=== PATIENT | female | born 1950 | race Caucasian/White ===

== ENCOUNTER 2016-07-08 20:46 | Observation (INO) ==
[2016-07-08 21:45] LABS: Albumin 3.6 g/dL (3.5-5.0); Bilirubin,Total 0.8 mg/dL (0.2-1.2); Calcium 10.2 mg/dL (8.6-10.8); Globulin 3.6 g/dL (2.4-3.5); Potassium 4.4 mEq/L (3.5-4.5); Total Protein 7.2 g/dL (6.0-8.3)
--- NOTE | 2016-07-08 22:03 | Emergency Department Note ---
Disposition Clinical Impression: Syncope Qualifiers: Syncope type: unspecified Qualified Code(s): R55 - Syncope and collapse Disposition: Admitted As Inpatient Condition: Fair Referrals: Suzanna Cody MD [Primary Care Provider] - Forms: ED Satisfaction Letter Altered Mental Status HPI - General Chief Complaint: ED Head Injury Stated Complaint: ams/fall Time Seen by Provider: 07/08/16 20:56 Source: EMS Nursing Notes Reviewed: Yes Vital Signs Reviewed: Yes - History of Present Illness HPI Narrative: Patient presents status post fall. Per family report patient reports that she was walking and blacked out and is not sure what happened. Patient does not have a history of falls does not use have a history of similar symptoms. Patient denies chest pain or shortness of breath. Patient denies dizziness. Per son report, patient has had word finding and slurring of words over the past month. He discussed this with the [facility] who was going to send the patient for an MRI for evaluation of CVA. He states that the patient's told him that she had a stroke. He relates that patient has had multiple strokes and she normally knows when she has had one. There is no report of eating and drinking difficulty with the symptoms. No report of weakness. - Related Data Home Medications Medication Instructions Recorded Confirmed Krill Oil 1,000 mg PO DAILY 02/10/15 03/23/15 Lisinopril [Zestril] 20 mg PO DAILY 02/10/15 03/23/15 Potassium Chloride 1 tab PO TID 02/10/15 03/23/15 Atorvastatin [Lipitor] 40 mg PO HS 03/10/15 03/23/15 Calcium Carbonate/Vitamin D3 1 each PO DAILY 03/10/15 03/23/15 [Calcium 600 + D Tablet] Docusate [Colace] 100 mg PO BID 03/10/15 03/23/15 Ondansetron HCl [Zofran] 4 - 8 mg PO TID PRN 03/10/15 03/23/15 Pantoprazole Sodium [Protonix] 20 mg PO DAILY 03/10/15 03/23/15 Sennosides/Docusate Sodium [Senna 1 each PO DAILY 03/10/15 03/23/15 Plus] Sucralfate [Carafate] 1 gm PO TID 03/10/15 03/23/15 Verapamil ER (24 HR) [Calan SR] 120 mg PO DAILY 03/10/15 03/23/15 Furosemide [Lasix] 20 mg PO DAILY 03/11/15 03/23/15 Tizanidine [Zanaflex] 2 mg PO Q8HR PRN 03/11/15 03/23/15 Previous Rx's Medication Instructions Recorded Amlodipine [Norvasc] 10 mg PO DAILY #0 tablet 01/22/15 Folic Acid 1 mg PO DAILY #0 tablet 01/22/15 Isosorbide DInitrate [Isordil] 30 mg PO TID #0 tablet 01/22/15 LevETIRAcetam [Keppra] 750 mg PO BID #0 tablet 01/22/15 Multivit/Ca/Min/Fe/FA [Thera M 1 tab PO DAILY #0 tablet 01/22/15 Plus] Paroxetine [Paxil] 20 mg PO DAILY #0 tablet 01/22/15 Rivaroxaban [Xarelto] 20 mg PO DAILY #0 tablet 01/22/15 Lidocaine Patch [Lidoderm 5% patch] 1 each TP DAILY #7 adh..patch 03/11/15 Ciprofloxacin HCl [Cipro] 500 mg PO BID #10 tablet 03/25/15 Hydrocodone/Acetaminophen [[place] 1 tab PO Q6H #28 tablet 03/25/15 7.5-325 Tablet] TraMADol [Ultram] 50 mg PO Q6HR PRN #28 tablet 03/25/15 TraZODone 50 mg PO HS #7 tablet 03/25/15 Allergies Allergy/AdvReac Type Severity Reaction Status Date / Time aspirin Allergy Anaphylaxis Verified 07/08/16 20:53 Penicillins Allergy Anaphylaxis Verified 07/08/16 20:53 All systems ED: reviewed and negative except as stated. 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 - Social History Smoking Status: Former smoker Smokeless Tobacco Status: No Alcohol use: Reports: none Drug use: Reports: none Physical Exam - General Limitations: no limitations General appearance: alert, in no apparent distress - Head Head exam: atraumatic, normocephalic, normal inspection - Eye Eye exam: Present: normal appearance, PERRL, EOMI - ENT ENT exam: normal exam, normal oropharynx, mucous membranes moist - Neck Neck exam: Present: normal inspection, full ROM, trachea midline - Chest Chest inspection: Present: normal inspection, symmetric chest wall rise - Respiratory Respiratory exam: Present: normal lung sounds bilaterally - Cardiovascular Cardiovascular exam: Present: regular rate, normal rhythm, normal heart sounds - Abdominal Exam Abdominal exam: Present: soft, Non-Tender. Absent: tenderness, distention, guarding, rebound, rigidity - Extremities Exam Extremities exam: Present: normal inspection, full ROM, tenderness (Tenderness to right lateral hip). Absent: pedal edema - Back Exam Back exam: Present: normal inspection, full ROM. Absent: tenderness - Neurological Exam Neurological exam: Present: alert - Psychiatric Psychiatric exam: Present: normal affect, normal mood - Skin Skin exam: Present: warm, dry, intact, normal color Course Vital Signs Temperature 98.0 F 07/08/16 20:48 Pulse Rate 78 07/08/16 20:48 Respiratory Rate 16 07/08/16 20:48 Blood Pressure 113/80 07/08/16 20:48 O2 Sat by Pulse Oximetry 94 L 07/08/16 20:48 Temperature 98.0 F 07/08/16 20:48 Pulse Rate 75 07/09/16 00:44 Respiratory Rate 14 07/09/16 00:44 Blood Pressure 142/81 07/09/16 00:44 O2 Sat by Pulse Oximetry 93 L 07/09/16 00:44 Oxygen Delivery Oxygen Delivery Room Air Altered Mental Status - Differential Diagnosis Likely: altered mental status, dementia, hypoglycemia, hyponatremia, subarachnoid hemorrhage - Lab Data Lab results reviewed: Yes I reviewed the patient's lab results. Result diagrams: 07/08/16 00:25 07/08/16 21:24 Lab Results 07/08/16 07/08/16 07/08/16 Range/Units 00:25 21:24 21:24 WBC 7.5 (4.3-11.1) K/mcL RBC 4.49 (3.82-4.97) M/mcL Hgb 14.9 (11.5-15.4) g/dL Hct 44.8 (35.3-44.9) % MCV 99.8 (83.0-100.0) fL MCH 33.2 (28.0-33.3) pg MCHC 33.3 (31.6-35.5) g/dL RDW 12.3 (11.5-14.5) % Plt Count 177 (140-400) K/mcL MPV 9.5 (9.4-12.4) fL Immature Gran % 0.5 (0-4) % Seg Neutrophils % 66.6 % Lymphocytes % 24.6 % Monocytes % 6.2 % Eosinophils % 1.7 % Basophils % 0.4 % Neutrophils # 5.0 (1.6-8.9) K/mcL Lymphocytes # 1.8 (0.6-4.6) K/mcL Monocytes # 0.5 (0.0-1.3) K/mcL Eosinophils # 0.1 (0.0-0.6) K/mcL Basophils # 0.0 (0.0-0.2) K/mcL Sodium 141 (136-145) mEq/L Potassium 4.4 (3.5-4.5) mEq/L Chloride 105 (98-109) mEq/L Carbon Dioxide 26 (19-29) mEq/L BUN 14 (7-20) mg/dL Creatinine 1.18 H (0.57-1.11) mg/dL Est GFR ( Amer) 55 L (> 60) Est GFR (Non-Af Amer) 46 L (> 60) BUN/Creatinine Ratio 12 (6-26) Glucose 122 H (70-99) mg/dL Calculated Osmolality 294 (280-300) Lactic Acid 1.3 (0.5-2.2) mmol/L Calcium 10.2 (8.6-10.8) mg/dL Total Bilirubin 0.8 (0.2-1.2) mg/dL AST 19 (5-34) Units/L ALT 14 (0-55) Units/L Alkaline Phosphatase 78 (38-126) Units/L Troponin I (0-0.03) ng/mL Serum Total Protein 7.2 (6.0-8.3) g/dL Albumin 3.6 (3.5-5.0) g/dL Globulin 3.6 H (2.4-3.5) g/dL Albumin/Globulin Ratio 1.0 L (1.1-2.2) Urine Color (Yellow) Urine Clarity (Clear) Urine pH (5.0-8.0) pH Units Ur Specific [place] (1.010-1.025) Urine Protein (Neg-Trace) mg/dL Urine Glucose (UA) (Normal) mg/dL Urine Ketones (Negative) mg/dL Urine Blood (Negative) Urine Nitrite (Negative) Urine Bilirubin (Negative) Urine Urobilinogen (Normal) mg/dL Ur Leukocyte Esterase (Negative) Urine Microscopic RBC (0-3) per hpf Urine Microscopic WBC (0-3) per hpf Ur Squamous Epith Cells (None-Few) per lpf Urine Bacteria (None-Few) per hpf Hyaline Casts (None-Few) per lpf Ur Culture Indicated? (NO) 07/08/16 07/08/16 Range/Units 21:24 22:10 WBC (4.3-11.1) K/mcL RBC (3.82-4.97) M/mcL Hgb (11.5-15.4) g/dL Hct (35.3-44.9) % MCV (83.0-100.0) fL MCH (28.0-33.3) pg MCHC (31.6-35.5) g/dL RDW (11.5-14.5) % Plt Count (140-400) K/mcL MPV (9.4-12.4) fL Immature Gran % (0-4) % Seg Neutrophils % % Lymphocytes % % Monocytes % % Eosinophils % % Basophils % % Neutrophils # (1.6-8.9) K/mcL Lymphocytes # (0.6-4.6) K/mcL Monocytes # (0.0-1.3) K/mcL Eosinophils # (0.0-0.6) K/mcL Basophils # (0.0-0.2) K/mcL Sodium (136-145) mEq/L Potassium (3.5-4.5) mEq/L Chloride (98-109) mEq/L Carbon Dioxide (19-29) mEq/L BUN (7-20) mg/dL Creatinine (0.57-1.11) mg/dL Est GFR ( Amer) (> 60) Est GFR (Non-Af Amer) (> 60) BUN/Creatinine Ratio (6-26) Glucose (70-99) mg/dL Calculated Osmolality (280-300) Lactic Acid (0.5-2.2) mmol/L Calcium (8.6-10.8) mg/dL Total Bilirubin (0.2-1.2) mg/dL AST (5-34) Units/L ALT (0-55) Units/L Alkaline Phosphatase (38-126) Units/L Troponin I 0.00 (0-0.03) ng/mL Serum Total Protein (6.0-8.3) g/dL Albumin (3.5-5.0) g/dL Globulin (2.4-3.5) g/dL Albumin/Globulin Ratio (1.1-2.2) Urine Color Yellow (Yellow) Urine Clarity Cloudy A (Clear) Urine pH 7.0 (5.0-8.0) pH Units Ur Specific [place] 1.012 (1.010-1.025) Urine Protein Negative (Neg-Trace) mg/dL Urine Glucose (UA) Normal (Normal) mg/dL Urine Ketones Negative (Negative) mg/dL Urine Blood Moderate H (Negative) Urine Nitrite Negative (Negative) Urine Bilirubin Negative (Negative) Urine Urobilinogen Normal (Normal) mg/dL Ur Leukocyte Esterase Moderate H (Negative) Urine Microscopic RBC 15-30 H (0-3) per hpf Urine Microscopic WBC 15-30 H (0-3) per hpf Ur Squamous Epith Cells Many H (None-Few) per lpf Urine Bacteria Many H (None-Few) per hpf Hyaline Casts None Seen (None-Few) per lpf Ur Culture Indicated? YES A (NO) - Radiology Data Radiology results reviewed: Yes I reviewed the patient's radiology results. Chest X-Ray 07/08/16 20:57 IMPRESSION: No acute cardiopulmonary abnormality. D/ / Jensen Segura MD / Jensen Segura MD Interpreting Provider: Jensen Segura MD Head CT 07/08/16 20:57 IMPRESSION: 1. No acute intracranial abnormality. 2. Unchanged encephalomalacia in the right frontal, bilateral parietal, and left upper lobes and the left cerebellar hemisphere. 3. Mild diffuse atrophy with severe chronic small vessel ischemic changes. D/ / Nghia Antonio MD / Nghia Antonio MD Interpreting Provider: Nghia Antonio MD - EKG Data EKG attestation: Yes I reviewed and interpreted this EKG. EKG results narrative: Unchanged from previous EKG performed in November 2015 EKG shows normal: sinus rhythm Rate: normal Rhythm: NSR TPA Checklist - LKW: 3-4.5 hrs Add. Contraindications Patient/family understanding: The patient/family members have been counseled and understood the risk, benefit , and alternatives of treatment.
[2016-07-08 22:18] LABS: Bilirubin,Urine Negative (Negative); Blood,Urine Moderate (Negative); Clarity,Urine Cloudy (Clear); Color,Urine Yellow (Yellow); Glucose,Urine (UA) Normal (Normal); Ketones,Urine Negative (Negative); Leukocyte Esterase,Urine Moderate (Negative); Nitrite,Urine Negative (Negative); Protein,Urine Negative (Neg-Trace); Specific Gravity,Urine 1.012 (1.010-1.025); Urobilinogen,Urine Normal (Normal)
[2016-07-08 22:19] LABS: Bacteria,Urine Many per hpf (None-Few); Hyaline Casts,Urine None Seen per lpf (None-Few); RBC,Urine 15-30 per hpf (0-3); Squamous Epithelial Cell,Urine Many per lpf (None-Few); WBC,Urine 15-30 per hpf (0-3)
[2016-07-09 00:40] LABS: Basophils % 0.4 %; Eosinophils # 0.1 K/mcL (0.0-0.6); Eosinophils % 1.7 %; Hematocrit 44.8 % (35.3-44.9); Hemoglobin 14.9 g/dL (11.5-15.4); Immature Granulocytes % 0.5 % (0-4); Lymphocytes # 1.8 K/mcL (0.6-4.6); Lymphocytes % 24.6 %; Mean Corpuscular HGB Conc 33.3 g/dL (31.6-35.5); Mean Corpuscular Hemoglobin 33.2 pg (28.0-33.3); Mean Corpuscular Volume 99.8 fL (83.0-100.0); Mean Platelet Volume 9.5 fL (9.4-12.4); Monocytes # 0.5 K/mcL (0.0-1.3); Monocytes % 6.2 %; Platelet Count 177 K/mcL (140-400); Red Blood Count 4.49 M/mcL (3.82-4.97); Red Cell Distribution Width 12.3 % (11.5-14.5); Segmented Neutrophils % 66.6 %
[2016-07-09] MEDS ORDERED: Levofloxacin 750 MG/150 ML 750 MG/150 ML BAG IVPB ONE (00:44)
[2016-07-09 01:26] LABS: INR 3.7; Prothrombin Time 41.4 Seconds (9.4-12.1)
[2016-07-09 01:32] LABS: Activated Partial Thrombo Time 51.6 Seconds (26.0-36.0)
[2016-07-09] MEDS ORDERED: Naloxone 0.4 MG/ML INJ IVP PRN (05:59)
--- NOTE | 2016-07-09 06:15 | Internal Med History&Physical ---
Date of Encounter: 07/09/16 Time of Encounter: 03:00 Assessment and Plan (1) Syncope Current visit: Yes Status: Acute Vasovagal versus cardiogenic versus neurological. Will check for Orthostatics; will obtain echocardiogram, carotid Doppler. Neurology consultation; PT/OT evaluation. Qualifiers: Syncope type: unspecified Qualified Code(s): R55 - Syncope and collapse (2) CVA, old, dysphagia Current visit: Yes Status: Chronic CT scan shows encephalomalacia. Pt failed bed side swallow eval. Will keep her NPO. Neurology consultation, speech therapy, physical therapy and occupational therapy consultation. (3) Abnormal urinalysis Current visit: Yes Status: Acute Empiric treat her for UTI with ceftriaxone. Cultures pending. (4) Depression Current visit: Yes Status: Chronic Continue her home medications Qualifiers: Depression Type: unspecified Qualified Code(s): F32.9 - Major depressive disorder, single episode, unspecified (5) Hypertension Current visit: Yes Status: Chronic Continue home medications Qualifiers: Hypertension type: essential hypertension Qualified Code(s): I10 - Essential (primary) hypertension (6) Chronic anticoagulation Current visit: Yes Status: Chronic Pt is on xarelto - will continue Internal Medicine - H&P: HPI Chief complaint: syncope Admitted From: Emergency Dept Plans for Post Hospital Care: Transfer Nutrition Assistant Care History of present illness: Ms. Zepeda is a 66 year old female with Past medical history significant for CVA (multiple strokes in the past per pt/family), GERD, hyperlipidemia, hypertension, CAD, RA, seizures, depression, s/p cholecystectomy. She is not able to give clinical details, due to some confusion. Apparently patient had a fall at about 7:50 PM while she was walking to the hallway from the snf and fell backwards, but no injuries reported at that time. Patient does not recollect the events. She reports feeling dizzy prior to the episode. She denies chest pain, palpitations, shortness of breath, abdominal pain, urinary or bowel problems. Per the ER documentation - Per son report, patient has had word finding and slurring of words over the past month. He discussed this with the snf who was going to send the patient for an MRI for evaluation of CVA. He states that the patient's told him that she had a stroke. He relates that patient has had multiple strokes and she normally knows when she has had one. Patient was evaluated in the emergency department for syncope and admitted to hospital service for further workup and management. CT head reported unchanged and encephalomalacia in the right frontal, bilateral parietal and left cerebellar hemisphere. Past Med Surg Social Fam HX - Past Medical History Medical history: CVA, GERD, hyperlipidemia, hypertension, myocardial infarction , RA, seizures, TIA Psychiatric history: depression - Past Surgical History Surgical History: cholecystectomy, PAXTON/BSO - Social History Smoking Status: Former smoker Smokeless Tobacco Status: No Alcohol use: none Drug use: none - Family History Mother Hx Family Cardiac Disorders: Yes (mother - CAD Brother - CAD) Father Hx Family Cancer: Yes (brain) Internal Medicine - H&P: Meds Folic Acid 1 mg PO DAILY #0 tablet 01/22/15 [Rx] Isosorbide DInitrate [Isordil] 30 mg PO TID #0 tablet 01/22/15 [Rx] LevETIRAcetam [Keppra] 750 mg PO BID #0 tablet 01/22/15 [Rx] Multivit/Ca/Min/Fe/FA [Thera M Plus] 1 tab PO DAILY #0 tablet 01/22/15 [Rx] Rivaroxaban [Xarelto] 20 mg PO DAILY #0 tablet 01/22/15 [Rx] Lisinopril [Zestril] 30 mg PO DAILY 02/10/15 [History] Potassium Chloride 1 tab PO TID 02/10/15 [History] Atorvastatin [Lipitor] 40 mg PO HS 03/10/15 [History] Calcium Carbonate/Vitamin D3 [Calcium 600 + D Tablet] 1 each PO DAILY 03/10/15 [ History] Docusate [Colace] 100 mg PO BID 03/10/15 [History] Pantoprazole Sodium [Protonix] 20 mg PO DAILY 03/10/15 [History] Sennosides/Docusate Sodium [Senna Plus] 1 each PO DAILY 03/10/15 [History] Verapamil ER (24 HR) [Calan SR] 120 mg PO DAILY 03/10/15 [History] Furosemide [Lasix] 20 mg PO DAILY 03/11/15 [History] Lidocaine Patch [Lidoderm 5% patch] 1 each TP DAILY #7 adh..patch 03/11/15 [Rx] Tizanidine [Zanaflex] 2 mg PO Q8HR PRN 03/11/15 [History] Hydrocodone/Acetaminophen [[place] 7.5-325 Tablet] 1 tab PO Q6H #28 tablet [Rx] TraMADol [Ultram] 50 mg PO Q6HR PRN #28 tablet 03/25/15 [Rx] TraZODone 50 mg PO HS #7 tablet 03/25/15 [Rx] ClonazePAM [Klonopin] 0.25 mg PO BID 07/09/16 [History] Erythromycin Base [Erythromycin] 250 mg PO TID 07/09/16 [History] Gabapentin [Neurontin] 100 mg PO TID 07/09/16 [History] Paroxetine [Paxil] 40 mg PO DAILY 07/09/16 [History] Allergies aspirin Allergy (Verified 07/08/16 20:53) Anaphylaxis Penicillins Allergy (Verified 07/08/16 20:53) Anaphylaxis All Systems PM: A 10-system review of systems was performed and is negative for pertinent findings except as documented above in the HPI. - Constitutional Vitals: Temp Pulse Resp BP Pulse Ox 97.6 F 81 18 150/86 92 L 07/09/16 01:25 07/09/16 01:25 07/09/16 01:25 07/09/16 01:25 07/09/16 01:25 Exam: General: Not in acute distress at the time of my evaluation HEENT: Oral mucosa is dry. Poor oral hygeine. No conjunctival palor or scleral icterus Neck: No obvious neck swellings Lungs: Clear to auscultation Cardiac: Regular rate and rhythm. No significant murmurs Abdomen: Soft, non tender. Bowel sounds present Neurological: Pt is alert, confused and not able to follow commands well. No gross cranial nerve abnormalities. Left upper and lower extremities - power 4+/ 5. Plantars - down going Psych: Not aggressive or agitated. confused Extremities: no significant leg edema Skin: No generalized rash. Has some excoriations on the left lateral aspect of the abdomen. Internal Med - H&P Results - Labs CBC & Chem 7: 07/08/16 00:25 07/08/16 21:24 - EKG Data -: EKG Interpreted by Myself EKG shows normal: sinus rhythm - EKG Data EKG comments: Q waves in leads 3 and aVF 07/09/16 06:16 - Impressions ITS Impressions Chest X-Ray 07/08/16 20:57 IMPRESSION: No acute cardiopulmonary abnormality. D/ / Jensen Segura MD / Jensen Segura MD Interpreting Provider: Jensen Segura MD Head CT 07/08/16 20:57 IMPRESSION: 1. No acute intracranial abnormality. 2. Unchanged encephalomalacia in the right frontal, bilateral parietal, and left upper lobes and the left cerebellar hemisphere. 3. Mild diffuse atrophy with severe chronic small vessel ischemic changes. D/ / Nghia Antonio MD / Nghia Antonio MD Interpreting Provider: Nghia Antonio MD Hip/Pelvis X-Ray 07/09/16 00:08 IMPRESSION: 1. No acute osseous abnormality of the pelvis or left or right hip. 2. Mild right and moderate left hip degenerative changes. D/ / Jensen Segura MD / Jensen Segura MD Interpreting Provider: Jensen Segura MD
[2016-07-09] MEDS: 0.9 % Sodium Chloride 1,000 ML IVC SCH ×2 (06:32→20:48)
[2016-07-09] MEDS ORDERED: Aztreonam 500 MG in D5% in Water 100 ML IVPB SCH (08:00)
[2016-07-09] MEDS: Verapamil ER (24 HR) 120 MG TABLET.ER PO SCH (09:24)
[2016-07-09] MEDS: Multivit/Ca/Min/Fe/FA 1 TAB TABLET PO SCH (09:25)
[2016-07-09] MEDS: clonazePAM 0.5 MG TABLET PO SCH ×2 (09:25→20:39)
[2016-07-09] MEDS: Calcium 600 + D PO SCH (09:25)
[2016-07-09] MEDS: Sennosides/Docusate Sodium TABLET PO SCH (09:25)
[2016-07-09] MEDS: Gabapentin 100 MG CAPSULE PO SCH ×3 (09:25→20:40)
[2016-07-09] MEDS: *HR* Rivaroxaban 10 MG TABLET PO SCH (09:25)
[2016-07-09] MEDS: Folic Acid 1 MG TABLET PO SCH (09:25)
--- NOTE | 2016-07-09 09:39 | Neurology - Consult Note ---
Date of Encounter: 07/09/16 Time of Encounter: 09:34 Assessment and Plan (1) Abnormal urinalysis Current Visit: Yes Status: Acute Likely the cause of the patient's delirium superimposing on her baseline vascular dementia. The patient has an extensive history of CVA and encephalomalacia. There are no acute findings that indicate acute CVA or neurogenic cause of her alteration of mentation from baseline. The patient's history and appearance of previous MRI suggest possible B[place] 's Disease. (2) CVA (cerebral vascular accident) Current Visit: No Status: Chronic On current anti-coagulation. Xarelto. Qualifiers: CVA mechanism: unspecified Qualified Code(s): I63.9 - Cerebral infarction, unspecified (3) CVA, old, dysphagia Current Visit: Yes Status: Chronic (4) Hypertension Current Visit: Yes Status: Chronic Qualifiers: Hypertension type: essential hypertension Qualified Code(s): I10 - Essential (primary) hypertension History of Present Illness Chief complaint: Fall, AMS HPI: Ms. Zepeda is a 66 year old female from [facility] where the patient was brought to the ED after the patient experienced an apparent syncopal episode. She is a very poor historian at this time due to possible alteration in mentation. The patient's son was told by nursing staff at facility that she "had a stroke", and it was confirmed with the ED attending that the patient has experienced multiple strokes in the past. It was also reported by the son that the patient has been experiencing more frequent confusion and weakness over the past month. The patient is currently anti-coagulated on xarelto. The patient was found to have possible UTI in ED. Head CT revealed encephalomalacia due to previous CVA. Patient noted to be afebrile, without leukocytosis, no hypotension or tachycardia. Patient denies any UTI symptoms. She denies any complaints at this time. Past Med Surg Social Fam HX - Past Medical History Attestation: Yes The following information was validated with the patient. Source: old records reviewed Medical history: CVA, GERD, hyperlipidemia, hypertension, myocardial infarction , RA, seizures, TIA Psychiatric history: depression, other (Paranoia) - Past Surgical History Surgical History: cholecystectomy, PAXTON/BSO - Social History Smoking Status: Former smoker Smokeless Tobacco Status: No Alcohol use: none Drug use: none Current living situation: ECF - Family History Mother Hx Family Cardiac Disorders: Yes (mother - CAD Brother - CAD) Father Hx Family Cancer: Yes (brain) Medications and Allergies Folic Acid 1 mg PO DAILY #0 tablet 01/22/15 [Rx] Isosorbide DInitrate [Isordil] 30 mg PO TID #0 tablet 01/22/15 [Rx] LevETIRAcetam [Keppra] 750 mg PO BID #0 tablet 01/22/15 [Rx] Multivit/Ca/Min/Fe/FA [Thera M Plus] 1 tab PO DAILY #0 tablet 01/22/15 [Rx] Rivaroxaban [Xarelto] 20 mg PO DAILY #0 tablet 01/22/15 [Rx] Lisinopril [Zestril] 30 mg PO DAILY 02/10/15 [History] Potassium Chloride 1 tab PO TID 02/10/15 [History] Atorvastatin [Lipitor] 40 mg PO HS 03/10/15 [History] Calcium Carbonate/Vitamin D3 [Calcium 600 + D Tablet] 1 each PO DAILY 03/10/15 [ History] Docusate [Colace] 100 mg PO BID 03/10/15 [History] Pantoprazole Sodium [Protonix] 20 mg PO DAILY 03/10/15 [History] Sennosides/Docusate Sodium [Senna Plus] 1 each PO DAILY 03/10/15 [History] Verapamil ER (24 HR) [Calan SR] 120 mg PO DAILY 03/10/15 [History] Furosemide [Lasix] 20 mg PO DAILY 03/11/15 [History] Lidocaine Patch [Lidoderm 5% patch] 1 each TP DAILY #7 adh..patch 03/11/15 [Rx] Tizanidine [Zanaflex] 2 mg PO Q8HR PRN 03/11/15 [History] Hydrocodone/Acetaminophen [[place] 7.5-325 Tablet] 1 tab PO Q6H #28 tablet [Rx] TraMADol [Ultram] 50 mg PO Q6HR PRN #28 tablet 03/25/15 [Rx] TraZODone 50 mg PO HS #7 tablet 03/25/15 [Rx] ClonazePAM [Klonopin] 0.25 mg PO BID 07/09/16 [History] Erythromycin Base [Erythromycin] 250 mg PO TID 07/09/16 [History] Gabapentin [Neurontin] 100 mg PO TID 07/09/16 [History] Paroxetine [Paxil] 40 mg PO DAILY 07/09/16 [History] Allergies aspirin Allergy (Verified 07/08/16 20:53) Anaphylaxis Penicillins Allergy (Verified 07/08/16 20:53) Anaphylaxis ROS unobtainable: due to mental status All Systems: A 10-system review of systems was performed and is negative for pertinent findings except as documented above in the HPI. Physical Examination - Vital Signs Vital Signs: Initial Vital Signs Temp Pulse Resp BP Pulse Ox 98.0 F 78 16 113/80 94 L 07/08/16 20:48 07/08/16 20:48 07/08/16 20:48 07/08/16 20:48 07/08/16 20:48 - Exam Exam: Patient is restless sitting in bed with her fingers twitching constantly and the patient clenching her jaw. - Constitutional General appearance: comfortable - Neurologic Sensorimotor examination: intact Detailed motor examination: grossly full strength in all extremities Motor examination - right side: 4/5: deltoids, biceps, triceps, wrist flexion, 5 /5: mold unloader, plantarflexion Motor examination - left side: 4/5: deltoids, biceps, triceps, wrist flexion, 5/ 5: mold unloader, plantarflexion Detailed sensory examination: light touch Reflexes: Biceps: 3+, Brachioradialis: 3+, Patella: 3+, Achilles: 3+ Mental Status Examination: awake, alert, oriented to person, oriented to place, follows commands appropriately, demented, rambling, impaired cognition, cognitive impairment, not reliable historian Cranial nerve examination: PERRL, EOMI, sensory to face intact, no facial asymmetry is present, hearing is intact symmetrically, soft palate elevates bilaterally upon phonation, tongue protrudes midline Cerebellar examination: performs finger to nose and heel to bucio symmetrically without ataxia Results - Laboratory Findings CBC and BMP: 07/08/16 00:25 07/08/16 21:24 Abnormal lab findings: Abnormal lab results PT 41.4 Seconds (9.4-12.1) H 07/08/16 00:25 APTT 51.6 Seconds (26.0-36.0) H 07/08/16 00:25 Creatinine 1.18 mg/dL (0.57-1.11) H 07/08/16 21:24 Est GFR ( Amer) 55 (> 60) L 07/08/16 21:24 Est GFR (Non-Af Amer) 46 (> 60) L 07/08/16 21:24 Glucose 122 mg/dL (70-99) H 07/08/16 21:24 Globulin 3.6 g/dL (2.4-3.5) H 07/08/16 21:24 Albumin/Globulin Ratio 1.0 (1.1-2.2) L 07/08/16 21:24 Urine Clarity Cloudy (Clear) A 07/08/16 22:10 Urine Blood Moderate (Negative) H 07/08/16 22:10 Ur Leukocyte Esterase Moderate (Negative) H 07/08/16 22:10 Urine Microscopic RBC 15-30 per hpf (0-3) H 07/08/16 22:10 Urine Microscopic WBC 15-30 per hpf (0-3) H 07/08/16 22:10 Ur Squamous Epith Cells Many per lpf (None-Few) H 07/08/16 22:10 Urine Bacteria Many per hpf (None-Few) H 07/08/16 22:10 Ur Culture Indicated? YES (NO) A 07/08/16 22:10 - Diagnostic Findings Chest x-ray: report reviewed - Attending Attestation I examined this patient and my medical decision-making was reviewed with the Resident Physician. I agree with the documented findings, disposition and treatment plan as described except to the extent set forth below. Consult Discharge Plan - Plan Referrals: Suzanna Cody MD [Primary Care Provider] -
--- NOTE | 2016-07-09 10:36 | Internal Med Progress Note ---
Date of Encounter: 07/09/16 Time of Encounter: 09:15 - Assessment and plan (1) CVA (cerebral vascular accident) Current Visit: No Status: Suspected Assessment and plan: possible new CVA suspected however her symptoms have manifested over the past month according to her son. MRI later today. Neuro onboard. OT and PT consultations pending. Patient failed bedside swallow eval so speech therapy is onboard. Nothing by mouth and meantime. Carotid ultrasound and echocardiogram also pending. Urinary tract infection noted, will continue aztreonam. Mild acute kidney injury also noted, will continue IV fluids. Chest x-ray negative. Head CT negative. Plain films of hip and pelvis negative. Patient with facial grimacing with palpation of right arm, will image. During my interaction with her, patient exhibited symptoms of word salad and inability to answer simple orientation questions. Suspect acute encephalopathy secondary to possible CVA, urinary tract infection with possible Wernicke's aphasia as the patient appears confused when staff is unable to understand her answers to questions. No focal neurological weaknesses. She is able to follow simple commands. No facial asymmetry. ITS Impressions Chest X-Ray 07/08/16 20:57 IMPRESSION: No acute cardiopulmonary abnormality. D/ / Jensen Segura MD / Jensen Segura MD Interpreting Provider: Jensen Segura MD Head CT 07/08/16 20:57 IMPRESSION: 1. No acute intracranial abnormality. 2. Unchanged encephalomalacia in the right frontal, bilateral parietal, and left upper lobes and the left cerebellar hemisphere. 3. Mild diffuse atrophy with severe chronic small vessel ischemic changes. D/ / Nghia Antonio MD / Nghia Antonio MD Interpreting Provider: Nghia Antonio MD :1 Hip/Pelvis X-Ray 07/09/16 00:08 IMPRESSION: 1. No acute osseous abnormality of the pelvis or left or right hip. 2. Mild right and moderate left hip degenerative changes. D/ / Jensen Segura MD / Jensen Segura MD Interpreting Provider: Jensen Segura MD Qualifiers: CVA mechanism: unspecified Qualified Code(s): I63.9 - Cerebral infarction, unspecified (2) Syncope Current Visit: Yes Status: Acute Qualifiers: Syncope type: unspecified Qualified Code(s): R55 - Syncope and collapse (3) Wernicke's encephalopathy Current Visit: Yes Status: Suspected (4) Abnormal urinalysis Current Visit: Yes Status: Acute Assessment and plan: Urine culture pending. Continue aztreonam. (5) JAIME (acute kidney injury) Current Visit: Yes Status: Acute Assessment and plan: Mild, patient appears dehydrated on examination with dry mucous membranes, continue IV fluids once her IV is replaced- she pulled out her PIV this am 2/2 delirium (6) CVA, old, dysphagia Current Visit: Yes Status: Chronic Assessment and plan: In review of her chart, I saw this patient in late 2014 twice and both times she was alert and oriented 3 during the day and would become paranoid and confused at night. Her son states that her inability to choose appropriate words while speaking has been going on for approximately one month. (7) Chronic anticoagulation Current Visit: Yes Status: Chronic Assessment and plan: continue xarelto (8) Hypertension Current Visit: Yes Status: Chronic Assessment and plan: Controlled, brain MRI pending. We will continue to trend and adjust medications as indicated secondary to MRI results Qualifiers: Hypertension type: essential hypertension Qualified Code(s): I10 - Essential (primary) hypertension (9) Chronic pain Current Visit: No Status: Chronic Assessment and plan: During my assessment of her, patient was unable to tell me whether or not she was in pain. She is listed as being on [place] 7.5 mg every 6 hours scheduled at [place]. Will change to prn- will avoid oversedation given her current delirious state but will also seek to avoid acute withdrawal. Qualifiers: Chronic pain type: other chronic pain Qualified Code(s): G89.29 - Other chronic pain (10) Vision loss of right eye Current Visit: No Status: Chronic - Subjective Interval history: Patient is seen and examined. On examination, patient resting supine in bed lying diagonally across her bed. Patient is alert and interactive but she is confused and unable to answer questions. Speech is unintelligible and word choice is an appropriate. As she is unable to give me history, I spoke to her son and states that she has had difficulty with "her brain and her words connecting" for approximately one month. Son states she has not been seen prior to this visit. - Constitutional Vitals: Temp Pulse Resp BP Pulse Ox 97.3 F L 77 16 128/78 93 L 07/09/16 07:05 07/09/16 07:05 07/09/16 07:05 07/09/16 07:05 07/09/16 07:05 General appearance: Present: A&O X 0, disheveled, mild distress. Absent: answers questions appropriately - Head Head exam: Present: atraumatic, normocephalic - Eye Eye exam: Present: PERRL, conjuntiva pink, sclera anicteric Pupils: Present: PERRL - Neck Neck exam general surgery: Present: supple, trachea midline. Absent: lymphadenopathy - Respiratory Respiratory exam: Present: decreased breath sounds. Absent: accessory muscle use, rales, respiratory distress, rhonchi, wheezes - Cardiovascular Cardiovascular exam: Present: RRR, +S1, +S2. Absent: diastolic murmur, gallop, rubs, systolic murmur - GI/Abdominal GI/Abdominal exam: Present: normal bowel sounds, soft, no peritoneal signs. Absent: distended, tenderness - Extremities Exam Extremities exam: Present: warm, radial pulses palpable and symetrical. Absent : calf tenderness, cyanotic, pedal edema - Neurological Exam Neurological exam: Present: altered, CN II-XII intact, no focal deficits, strengths equal and symetr throughout. Absent: pronater drift, facial droop, speech deficit - Expanded Neurological Exam Neurological exam expanded: Present: protecting the airway Patient oriented to: Absent: person, place, time Speech: Present: expressive aphasia, garbled Cranial Nerves: EOM's intact PM: Normal, tongue deviation PM: Normal Neuro motor strength exam: LUE: 5, RUE: 5, LLE: 5, RLE: 5 Coma Scale Eye Opening: Spontaneous Coma Scale Motor Response: Obeys Commands Coma Scale Verbal Response: Incomprehensible Coma Scale Total: 12 - Psychiatric Psychiatric exam: Present: agitated, anxious - Expanded Psychiatric Exam Focused psych exam: Present: pressured speech, psychomotor agitation, restlessness - Skin Skin exam: Present: dry, intact, pallor, warm Internal Medicine: Result - Labs CBC & Chem 7: 07/08/16 00:25 07/08/16 21:24 - ABG Interpretation ABG results: PT/INR, D-dimer PT 41.4 Seconds (9.4-12.1) H 07/08/16 00:25 Consult Discharge Plan - Plan Referrals: Suzanna Cody MD [Primary Care Provider] -
--- NOTE | 2016-07-09 15:36 | Electrocardiograph Report ---
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
[2016-07-09] MEDS ORDERED: D5% in Water (Mini-Bag+) 100 ML IVPB ONE ×2 (17:51→20:32)
[2016-07-09] MEDS: *HR* HYDROcodone/Acet 7.5/325 mg TABLET PO PRN (20:35)
[2016-07-09] MEDS: traZODone 50 MG TABLET PO SCH (20:43)
[2016-07-09] MEDS: Aztreonam 500 MG in D5% in Water 100 ML IVPB SCH (20:48)
[2016-07-10] MEDS: Aztreonam 500 MG in D5% in Water 100 ML IVPB SCH ×3 (04:02→21:56)
[2016-07-10 04:50] LABS: BUN/Creatinine Ratio 16 (6-26); Blood Urea Nitrogen 14 mg/dL (7-20); Carbon Dioxide 22 mEq/L (19-29); Chloride 111 mEq/L (98-109); Glucose 95 mg/dL (70-99); Osmolality,Calculated 290 (280-300); Potassium 3.2 mEq/L (3.5-4.5); Sodium 140 mEq/L (136-145); eGFR For African Americans > 60 (> 60); eGFR For Non-African Americans > 60 (> 60)
[2016-07-10] MEDS ORDERED: D5% in Water (Mini-Bag+) 100 ML IVPB ONE (07:14)
[2016-07-10] MEDS: 0.9 % Sodium Chloride 1,000 ML IVC SCH (07:36)
[2016-07-10] MEDS: Multivit/Ca/Min/Fe/FA 1 TAB TABLET PO SCH (07:41)
[2016-07-10] MEDS: *HR* Rivaroxaban 10 MG TABLET PO SCH (07:41)
[2016-07-10] MEDS: Sennosides/Docusate Sodium TABLET PO SCH (07:41)
[2016-07-10] MEDS: Verapamil ER (24 HR) 120 MG TABLET.ER PO SCH (07:42)
[2016-07-10] MEDS: Folic Acid 1 MG TABLET PO SCH (07:42)
[2016-07-10] MEDS: clonazePAM 0.5 MG TABLET PO SCH ×2 (07:43→21:55)
[2016-07-10] MEDS: Propranolol LA (24 HR) 60 MG CAP.SA.24H PO SCH (07:43)
[2016-07-10] MEDS: Calcium 600 + D PO SCH (07:43)
[2016-07-10] MEDS: Gabapentin 100 MG CAPSULE PO SCH ×3 (07:43→21:55)
[2016-07-10] MEDS: *HR* HYDROcodone/Acet 7.5/325 mg TABLET PO PRN ×3 (07:44→21:54)
[2016-07-10] MEDS ORDERED: Potassium Chloride 20 MEQ, Lidocaine 1% 2 ML in D5% in Water 250 ML IVPB ONE (08:38)
--- NOTE | 2016-07-10 09:06 | ECHO - Doppler Report ---
Limited Echocardiogram Name: Adriane Zepeda Date of Study: 07/09/2016 Date: 1950 Ht: 62.0 in Medical Record#: [id number] Age: 66 Wt: 115.0 lb Gender: Female BSA: 1.51 Order #: [id number] Location: [facility] Room #: 3B34 Reading Physician: Beverly Reyes DO [employer] Field Specialist: Zulay Travis RDCS Ordering Physician: Steve Frias MD Primary Physician: Suzanna Cody MD Indications: Syncope Impressions: Incomplete exam. Patient was unable to cooperate with study. Consider repeat when clinical status allows. Findings: Study Quality * Technically sub-optimal due to clinical status. * Exam was not interpretable. History Hypertension Hypercholesteremia Family History of CAD History of CAD/PTCA Myocardial Infarction 03/10/2015 a Previous Echo was performed. Measurements: BP: 180/ 98 2D Normal Values LA volume: Updated by Beverly Reyes on 07/10/2016 9:01:21 AM electronically signed on 07/10/2016 9:01:39 AM with status of Final [place] [employer] [place]: 1=Normal, 2=Hypokinesis, 3=Akinesis, 4=Dyskinesis, 5=Aneurysmal, 6=Hyperkinetic, X=Not Visualized (Blank)=Missing
--- NOTE | 2016-07-10 15:26 | Internal Med Progress Note ---
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 chronic hypertension with small vessel ischemic disease Continue Xarelto PT/OT eval noted: SNF recommended awaiting speech therapy eval for advancing diet awaiting neurology follow up Patient's records report that she has had the mouth movements and repetitive finger fabian movements for over a month and are of unclear etiology No change in movements noted despite use of Cogentin Will await neurology recommendations for discharge planning Qualifiers: CVA mechanism: unspecified Qualified Code(s): I63.9 - Cerebral infarction, unspecified (2) UTI (urinary tract infection) Current Visit: Yes Status: Acute Assessment and plan: Continue Aztreonam On Aztreonam due to severe PCN allergy urine culture negative will continue abx therapy for 5 days. Qualifiers: Urinary tract infection type: site unspecified Hematuria presence: without hematuria Qualified Code(s): N39.0 - Urinary tract infection, site not specified (3) Hypokalemia Current Visit: Yes Status: Acute Assessment and plan: K supplemented will continue to monitor electrolytes and replace as needed (4) CVA, old, dysphagia Current Visit: Yes Status: Chronic (5) Chronic anticoagulation Current Visit: Yes Status: Chronic Assessment and plan: continue xarelto (6) Hypertension Current Visit: Yes Status: Chronic Assessment and plan: BP within acceptable range continue to monitor continue home medications Qualifiers: Hypertension type: essential hypertension Qualified Code(s): I10 - Essential (primary) hypertension - Subjective Interval history: Patient seen and examined at bedside. Resting in bed and reports of feeling better compared to the previous day. As per records from [facility], patient has had mouth movement resembling rhythmic biting for the last month.She did receive one dose of Cogentin yesterday without much improvement in her symptoms. - Constitutional Vitals: Temp Pulse Resp BP Pulse Ox 97.6 F 55 14 137/73 95 07/10/16 12:35 07/10/16 12:35 07/10/16 12:35 07/10/16 12:35 07/10/16 12:35 General appearance: Present: A&O X 2, no acute distress, answers questions appropriately - Head Head exam: Present: atraumatic, normocephalic - Eye Eye exam: Present: conjuntiva pink, sclera anicteric - Respiratory Respiratory exam: Present: CTAB. Absent: respiratory distress, wheezes - Cardiovascular Cardiovascular exam: Present: RRR, +S1, +S2 - GI/Abdominal GI/Abdominal exam: Present: normal bowel sounds, soft. Absent: distended, tenderness - Extremities Exam Extremities exam: Present: pedal edema, warm, radial pulses palpable and symetrical. Absent: calf tenderness - Neurological Exam Neurological exam: Present: alert, speech deficit Internal Medicine: Result - Labs CBC & Chem 7: 07/08/16 00:25 07/10/16 Unknown Labs: BMP 07/10/16 Unknown Sodium 140 Potassium 3.2 L D Chloride 111 H Carbon Dioxide 22 BUN 14 Creatinine 0.88 Glucose 95 Calcium 8.0 L D - ABG Interpretation ABG results: PT/INR, D-dimer PT 41.4 Seconds (9.4-12.1) H 07/08/16 00:25 Consult Discharge Plan - Plan Referrals: Suzanna Cody MD [Primary Care Provider] -
--- NOTE | 2016-07-10 17:12 | Carotid Imaging Report ---
Carotid Duplex Patient Name:Adriane Zepeda Order Number:[id number] Procedure Date:07/09/2016 Date:8Age:66 yrs Gender:Female Rt.BP:180 / 98 mmHgHeart Rate: Location:[facility] Room #: 3B34 Polysomnographic Technologist:Zulay Travis RDCS Referring MD:Steve Frias MD nurses superintendent:Suzanna Cody MD Reading MD:Luiz Rea MD , FACS Primary Indications:Syncope and collapse Risk Factors Yes/No Hypertension Yes Hypercholesterolemia Yes Smoker Previous Yes Hx of CVA Yes Hx of CAD/PTCA Yes Impressions: Findings: Right carotid system is inadequately studied due to lack of patient cooperation. Recommendations: Unable to fully perform exam due to patient mental status, rolling around in bed and pusing tech away. Pt did not understand when tech voiced commands. Spoke with RN about patient inability to hold still during exam, RN stated patient was in this state consistently. Findings Carotid Duplex: Right: The right distal common carotid, right bifurcation, right proximal internal carotid, right mid internal carotid, right distal internal carotid, right eca and right vertebral arteries were not assessed. Prior Study: No prior study available for comparison. Carotid Results Ratio's Updated by Luiz Rea MD, FACS on 07/10/2016 5:09:23 PM Luiz Rea MD electronically signed on 07/10/2016 5:09:39 PM with status of Final
--- NOTE | 2016-07-10 17:38 | Neurology Progress Note ---
Date of Encounter: 07/10/16 Time of Encounter: 17:35 Assessment and Plan (1) Dyskinesia Current Visit: Yes Status: Acute Dyskinesia involving mainly the hands and fingers, idiopathic, no obvious offending factors or agents identified. May benefit from judicious use of atypical antipsycotic but extermination inspector benefit known. May benefit from outpatient work up for other neurodegenerative disorders, especially Late onset [place]' s disease. Please continue medical and supportive care. Will sign off at this time. Please call if any questions Subjective Interval history: patient seen and examined. patient feeling a little better, in terms of her dyskinetic movements. Girish noticed that when he puts the food into her mouth the mouth movements stops. The mouth movements and finger picking movements have became rather stable, and she feels a little better now. Is on Propranolol CR 60mg daily second dose now. Objective - Constitutional Vitals: Temp Pulse Resp BP Pulse Ox 97.7 F 60 16 116/65 93 L 07/10/16 16:06 07/10/16 16:06 07/10/16 16:06 07/10/16 16:06 07/10/16 16:06 - Neurological Exam Sensorimotor examination: Present: intact Motor Examination: Present: grossly full strength in all extremities Motor examination - left side: 4/5: deltoids, biceps, triceps, wrist flexion, 5/ 5: precision filer hand, plantarflexion Sensation intact: Present: light touch Mental Status Examination: Present: awake, alert, oriented to person, oriented to place, follows commands appropriately, demented, rambling, impaired cognition , cognitive impairment, not reliable historian Cranial nerve examination: Present: PERRL, EOMI, sensory to face intact, no facial asymmetry is present, hearing is intact symmetrically, soft palate elevates bilaterally upon phonation, tongue protrudes midline Cerebellar examination: Present: performs finger to nose and heel to bucio symmetrically without ataxia Results - Laboratory Findings CBC and BMP: 07/08/16 00:25 07/10/16 Unknown Abnormal lab findings: Abnormal lab results PT 41.4 Seconds (9.4-12.1) H 07/08/16 00:25 APTT 51.6 Seconds (26.0-36.0) H 07/08/16 00:25 Potassium 3.2 mEq/L (3.5-4.5) L D 07/10/16 Unknown Chloride 111 mEq/L (98-109) H 07/10/16 Unknown Calcium 8.0 mg/dL (8.6-10.8) L D 07/10/16 Unknown Globulin 3.6 g/dL (2.4-3.5) H 07/08/16 21:24 Albumin/Globulin Ratio 1.0 (1.1-2.2) L 07/08/16 21:24 Urine Clarity Cloudy (Clear) A 07/08/16 22:10 Urine Blood Moderate (Negative) H 07/08/16 22:10 Ur Leukocyte Esterase Moderate (Negative) H 07/08/16 22:10 Urine Microscopic RBC 15-30 per hpf (0-3) H 07/08/16 22:10 Urine Microscopic WBC 15-30 per hpf (0-3) H 07/08/16 22:10 Ur Squamous Epith Cells Many per lpf (None-Few) H 07/08/16 22:10 Urine Bacteria Many per hpf (None-Few) H 07/08/16 22:10 Ur Culture Indicated? YES (NO) A 07/08/16 22:10 Consult Discharge Plan - Plan Referrals: Suzanna Cody MD [Primary Care Provider] -
[2016-07-10] MEDS: traZODone 50 MG TABLET PO SCH (21:55)
[2016-07-11] MEDS: 0.9 % Sodium Chloride 1,000 ML IVC SCH (03:30)
[2016-07-11] MEDS: Aztreonam 500 MG in D5% in Water 100 ML IVPB SCH (05:41)
[2016-07-11 06:12] LABS: Basophils % 0.6 %; Eosinophils # 0.2 K/mcL (0.0-0.6); Eosinophils % 3.4 %; Hematocrit 32.6 % (35.3-44.9); Hemoglobin 10.9 g/dL (11.5-15.4); Immature Granulocytes % 0.2 % (0-4); Lymphocytes % 39.1 %; Mean Corpuscular HGB Conc 33.4 g/dL (31.6-35.5); Mean Corpuscular Hemoglobin 33.5 pg (28.0-33.3); Mean Corpuscular Volume 100.3 fL (83.0-100.0); Mean Platelet Volume 9.5 fL (9.4-12.4); Monocytes # 0.5 K/mcL (0.0-1.3); Monocytes % 9.6 %; Neutrophils # 2.5 K/mcL (1.6-8.9); Platelet Count 121 K/mcL (140-400); Red Blood Count 3.25 M/mcL (3.82-4.97); Red Cell Distribution Width 12.7 % (11.5-14.5); Segmented Neutrophils % 47.1 %
[2016-07-11 06:25] LABS: BUN/Creatinine Ratio 14 (6-26); Blood Urea Nitrogen 11 mg/dL (7-20); Calcium 7.9 mg/dL (8.6-10.8); Carbon Dioxide 23 mEq/L (19-29); Chloride 112 mEq/L (98-109); Glucose 93 mg/dL (70-99); Magnesium 1.6 mg/dL (1.6-2.6); Osmolality,Calculated 289 (280-300); Phosphorous 2.9 mg/dL (2.3-4.7); Potassium 3.6 mEq/L (3.5-4.5); Sodium 140 mEq/L (136-145); eGFR For African Americans > 60 (> 60); eGFR For Non-African Americans > 60 (> 60)
[2016-07-11] MEDS ORDERED: D5% in Water (Mini-Bag+) 100 ML IVPB ONE (07:56)
[2016-07-11] MEDS: Multivit/Ca/Min/Fe/FA 1 TAB TABLET PO SCH (08:09)
[2016-07-11] MEDS: *HR* Rivaroxaban 10 MG TABLET PO SCH (08:09)
[2016-07-11] MEDS: clonazePAM 0.5 MG TABLET PO SCH (08:09)
[2016-07-11] MEDS: Verapamil ER (24 HR) 120 MG TABLET.ER PO SCH (08:09)
[2016-07-11] MEDS: Gabapentin 100 MG CAPSULE PO SCH (08:09)
[2016-07-11] MEDS: Propranolol LA (24 HR) 60 MG CAP.SA.24H PO SCH (08:09)
[2016-07-11] MEDS: Sennosides/Docusate Sodium TABLET PO SCH (08:09)
[2016-07-11] MEDS: Calcium 600 + D PO SCH (08:10)
[2016-07-11] MEDS: Folic Acid 1 MG TABLET PO SCH (08:10)
[2016-07-11 11:20] VITALS: BP 129/70
--- NOTE | 2016-07-11 12:38 | Discharge Summary ---
Date of Encounter: 07/11/16 Time of Encounter: 12:36 - Discharge Diagnosis (1) CVA (cerebral vascular accident) Priority: Primary Status: Suspected Qualifiers: CVA mechanism: unspecified Qualified Code(s): I63.9 - Cerebral infarction, unspecified (2) UTI (urinary tract infection) Priority: Secondary Status: Acute Qualifiers: Urinary tract infection type: site unspecified Hematuria presence: without hematuria Qualified Code(s): N39.0 - Urinary tract infection, site not specified (3) Hypokalemia Priority: Secondary Status: Resolved (4) CVA, old, dysphagia Priority: Secondary Status: Chronic (5) Chronic anticoagulation Priority: Secondary Status: Chronic (6) Hypertension Priority: Secondary Status: Chronic Qualifiers: Hypertension type: essential hypertension Qualified Code(s): I10 - Essential (primary) hypertension - Discharge Medications Home Medications: Folic Acid 1 mg PO DAILY #0 tablet 01/22/15 [Rx] Isosorbide DInitrate [Isordil] 30 mg PO TID #0 tablet 01/22/15 [Rx] Multivit/Ca/Min/Fe/FA [Thera M Plus] 1 tab PO DAILY #0 tablet 01/22/15 [Rx] Rivaroxaban [Xarelto] 20 mg PO DAILY #0 tablet 01/22/15 [Rx] Lisinopril [Zestril] 30 mg PO DAILY 02/10/15 [History] Potassium Chloride 20 meq PO TID 02/10/15 [History] Atorvastatin [Lipitor] 40 mg PO HS 03/10/15 [History] Calcium Carbonate/Vitamin D3 [Calcium 600 + D Tablet] 2 tab PO DAILY 03/10/15 [ History] Docusate [Colace] 100 mg PO BID 03/10/15 [History] Pantoprazole Sodium [Protonix] 20 mg PO DAILY 03/10/15 [History] Sennosides/Docusate Sodium [Senna Plus] 1 each PO DAILY 03/10/15 [History] Verapamil ER (24 HR) [Calan SR] 120 mg PO DAILY 03/10/15 [History] Furosemide [Lasix] 20 mg PO DAILY 03/11/15 [History] Hydrocodone/Acetaminophen [[place]line 7.5-325 Tablet] 1 tab PO Q6H #28 tablet [Rx] TraZODone 50 mg PO HS #7 tablet 03/25/15 [Rx] ClonazePAM [Klonopin] 0.25 mg PO BID 07/09/16 [History] Ergocalciferol (VITAMIN D2) [Vitamin D2] 50,000 unit PO QWEEK 07/09/16 [History] Erythromycin Base [Erythromycin] 250 mg PO TID 07/09/16 [History] Gabapentin [Neurontin] 100 mg PO TID 07/09/16 [History] Paroxetine [Paxil] 40 mg PO DAILY 07/09/16 [History] Allergies/Adverse Reactions: Allergies aspirin Allergy (Verified 07/09/16 10:35) Anaphylaxis Penicillins Allergy (Verified 07/09/16 10:35) Anaphylaxis Procedures/tests Complete & Pending: Procedures Performed prior 72 hours Category Date Time Status MR head/brain wo/w con [MR] Routine MRI 07/10/16 16:34 Completed EV carotid duplex imaging RT Routine Y 07/09/16 06:04 Completed EV limited echocardiogram Routine Y 07/09/16 06:04 Completed Date of admission: 07/09/16 01:03 Primary care physician: Suzanna Cody, Consults: 07/09/16 06:02 Consult to Occupational Therapy [CONS] Routine Comment: Evaluate, develop and implement POC Consult to Physical Therapy [CONS] Routine Comment: Evaluate, develop and implement POC Consult to [place] Equipment Repairer [CONS] Routine Reason for SW Consult: placement Consult to Speech Therapy [CONS] Routine Comment: Evaluate, develop and implement POC Reason for Consult: Dysphasia Call Completed: No 07/09/16 06:04 Consult to Neurology [CONS] Routine Consulting Provider: Neurology [facility] Reason for Consult: H/O strokes; Dysphasia Call Completed: No Discharging clinician: Kate Barrett Anticipated date of discharge: 07/11/16 - Patient Status Disposition: Transfer SNF Condition: Fair Functional capacity at discharge: uses cane/walker Overall status at discharge: patient is back to baseline - Discharge Instructions Follow Up With: Suzanna Cody MD [Primary Care Provider] - Additional Instructions: Please follow up with Primary care physician within one week after your discharge from the hospital. Please follow up with Neurologist (Dr. Locke) within one to two weeks after your discharge from the hospital. Please continue to take all your medications as prescribed by your primary care physician. - Diet and Activity Activity: as per physical therapy Diet: other (mechanically altered diet ) Hospital course: Ms. Zepeda is a 66 year old female with PMH of CVA (multiple strokes in the past per pt/family), GERD, hyperlipidemia, hypertension, CAD, RA, seizures, depression, s/p cholecystectomy who was admitted for a syncope and concern for recurrence of CVA. Patient was also found to have positive UA with leukocyte esterase for which she was started on IV abx. Patient was followed by neurology and underwent stroke work up. She was also noted to have rhythmic movements of her mouth and fingers which as per family and patient are chronic in nature and do not seem to bother the patient. Neurology was concerned about patient's dyskinesia of unclear etiology, and further outpatient work up was recommended. Patient was also evaluated by physical therapy and SNF was recommended. Patient' s urine cultures were negative and since patient never had any urinary symptoms , will not discharge patient with antibiotics. At this time patient is at baseline, no syncopal episodes reported, hemodynamically stable. Will be discharged to SNF with follow up with PCP and neurology. - Time Spent with Patient Total time spent providing and/or coordinating discharge services: Less than 30 minutes - Constitutional Vitals: Temp Pulse Resp BP Pulse Ox 97.9 F 62 18 129/70 93 L 07/11/16 11:19 07/11/16 11:19 07/11/16 11:19 07/11/16 11:19 07/11/16 11:19 General appearance: Present: A&O X 3, pleasant, no acute distress, answers questions appropriately - Head Head exam: Present: atraumatic, normocephalic - Eye Eye exam: Present: normal appearance, conjuntiva pink, sclera anicteric - Respiratory Respiratory exam: Present: CTAB. Absent: respiratory distress, wheezes - Cardiovascular Cardiovascular exam: Present: RRR, +S1, +S2 - GI/Abdominal GI/Abdominal exam: Present: normal bowel sounds, soft. Absent: tenderness - Extremities Exam Extremities exam: Present: pedal edema, warm, radial pulses palpable and symetrical. Absent: calf tenderness - Neurological Exam Neurological exam: Present: alert
--- NOTE | 2016-07-11 13:00 | Physician Discharge Referral ---
[facility] Referral Info Transfer To: ECF Provider in Charge after Transfer: PCP - Diagnosis (1) CVA (cerebral vascular accident) Priority: Primary Status: Suspected (2) UTI (urinary tract infection) Priority: Secondary Status: Acute (3) Hypokalemia Priority: Secondary Status: Resolved (4) CVA, old, dysphagia Priority: Secondary Status: Chronic (5) Chronic anticoagulation Priority: Secondary Status: Chronic (6) Hypertension Priority: Secondary Status: Chronic - Transfer Medications Home Medications: Folic Acid 1 mg PO DAILY #0 tablet 01/22/15 [Rx] Isosorbide DInitrate [Isordil] 30 mg PO TID #0 tablet 01/22/15 [Rx] Multivit/Ca/Min/Fe/FA [Thera M Plus] 1 tab PO DAILY #0 tablet 01/22/15 [Rx] Rivaroxaban [Xarelto] 20 mg PO DAILY #0 tablet 01/22/15 [Rx] Lisinopril [Zestril] 30 mg PO DAILY 02/10/15 [History] Potassium Chloride 20 meq PO TID 02/10/15 [History] Atorvastatin [Lipitor] 40 mg PO HS 03/10/15 [History] Calcium Carbonate/Vitamin D3 [Calcium 600 + D Tablet] 2 tab PO DAILY 03/10/15 [ History] Docusate [Colace] 100 mg PO BID 03/10/15 [History] Pantoprazole Sodium [Protonix] 20 mg PO DAILY 03/10/15 [History] Sennosides/Docusate Sodium [Senna Plus] 1 each PO DAILY 03/10/15 [History] Verapamil ER (24 HR) [Calan SR] 120 mg PO DAILY 03/10/15 [History] Furosemide [Lasix] 20 mg PO DAILY 03/11/15 [History] Hydrocodone/Acetaminophen [Roxie 7.5-325 Tablet] 1 tab PO Q6H #28 tablet [Rx] TraZODone 50 mg PO HS #7 tablet 03/25/15 [Rx] ClonazePAM [Klonopin] 0.25 mg PO BID 07/09/16 [History] Ergocalciferol (VITAMIN D2) [Vitamin D2] 50,000 unit PO QWEEK 07/09/16 [History] Erythromycin Base [Erythromycin] 250 mg PO TID 07/09/16 [History] Gabapentin [Neurontin] 100 mg PO TID 07/09/16 [History] Paroxetine [Paxil] 40 mg PO DAILY 07/09/16 [History] Allergies/Adverse Reactions: Allergies aspirin Allergy (Verified 07/09/16 10:35) Anaphylaxis Penicillins Allergy (Verified 07/09/16 10:35) Anaphylaxis - Respiratory Orders Smoking Cessation: Smoking cessation has been advised. For more information, call the [facility] Tobacco Quit Line at 0-729-BJBU-NOW. - Treatments List/Other: Please follow up with Primary care physician within one week after your discharge from the hospital. Please follow up with Neurologist (Dr. Locke) within one to two weeks after your discharge from the hospital. Please continue to take all your medications as prescribed by your primary care physician. - Diet Orders Mechanical Soft (MECHANICALLY ALTERED DIET!!) CERTIFICATION: I certify that the transfer of the above named patient to an Extended Care Facility is necessary for the continuing treatment of the diagnosis listed. The above information is true and accurate reflection of patient's current condition. Confidential - Redisclosure prohibited without a patient's written consent.
== END 2016-07-11 13:55 ==
LOC: EMEROO 20:46 → 3BNU 20:46 → SUATTDRO 07-09 01:03 → 3BNU 07-09 01:09
PROVIDERS: ADMIT Pediatrics; ATTEND Internal Medicine

== ENCOUNTER 2017-02-19 07:46 | Observation (INO) ==
[2017-02-19] MEDS ORDERED: 0.9 % Sodium Chloride 1,000 ML IVC ONE (07:51)
[2017-02-19] MEDS ORDERED: Ondansetron 4 MG/2 ML VIAL IVP ONE (07:51)
[2017-02-19 08:13] LABS: Basophils % 0.3 %; Eosinophils % 0.1 %; Hematocrit 42.8 % (35.3-44.9); Hemoglobin 14.5 g/dL (11.5-15.4); Immature Granulocytes % 0.7 % (0-4); Lymphocytes # 1.4 K/mcL (0.6-4.6); Lymphocytes % 10.3 %; Mean Corpuscular HGB Conc 33.9 g/dL (31.6-35.5); Mean Corpuscular Hemoglobin 32.8 pg (28.0-33.3); Mean Corpuscular Volume 96.8 fL (83.0-100.0); Mean Platelet Volume 9.8 fL (9.4-12.4); Monocytes # 0.8 K/mcL (0.0-1.3); Monocytes % 5.7 %; Neutrophils # 11.2 K/mcL (1.6-8.9); Platelet Count 230 K/mcL (140-400); Red Blood Count 4.42 M/mcL (3.82-4.97); Red Cell Distribution Width 13.5 % (11.5-14.5); Segmented Neutrophils % 82.9 %
[2017-02-19 08:14] LABS: Bilirubin,Urine Small (Negative); Blood,Urine Trace (Negative); Clarity,Urine Cloudy (Clear); Color,Urine Dark Yellow (Yellow); Glucose,Urine (UA) Normal (Normal); Ketones,Urine Negative (Negative); Leukocyte Esterase,Urine Negative (Negative); Nitrite,Urine Negative (Negative); Protein,Urine 100 mg/dL (Neg-Trace); Specific Gravity,Urine 1.027 (1.010-1.025); Urobilinogen,Urine Normal (Normal)
[2017-02-19 08:16] LABS: Bacteria,Urine None Seen per hpf (None-Few); Squamous Epithelial Cell,Urine Many per lpf (None-Few); WBC,Urine 0-3 per hpf (0-3)
[2017-02-19 08:22] LABS: Albumin 4.1 g/dL (3.5-5.0); Albumin/Globulin Ratio 0.9 (1.1-2.2); Bilirubin,Direct 0.3 mg/dL (0.0-0.5); Bilirubin,Indirect 0.3 mg/dL (0.0-1.2); Bilirubin,Total 0.6 mg/dL (0.2-1.2); Calcium 9.5 mg/dL (8.6-10.8); Globulin 4.4 g/dL (2.4-3.5); Total Protein 8.5 g/dL (6.0-8.3)
--- NOTE | 2017-02-19 10:06 | Emergency Department Note ---
Disposition Clinical Impression: Dehydration, JAIME (acute kidney injury), Hypernatremia Nausea and vomiting Qualifiers: Vomiting type: unspecified Vomiting Intractability: unspecified Qualified Code( s): R11.2 - Nausea with vomiting, unspecified Disposition: Admitted As Inpatient Condition: Good Time of Disposition: 10:23 General Adult HPI - General Chief complaint: ED Nausea/Vomiting/Diarrhea Stated complaint: nausea,vomitting,weakness Time Seen by Provider: 02/19/17 07:51 Source: EMS Limitations: no limitations Nursing Notes Reviewed: Yes Vital Signs Reviewed: Yes - History of Present Illness HPI Narrative: Patient presents from the senior care for evaluation of nausea and vomiting. Patient has had several episodes of emesis today as well as abdominal discomfort. She denies any recent trauma or injury. Denies any falls. Denies any change in mentation. intermediate facility was concerned sinus syndrome to the emergency room for evaluation. Denies any other complaints including chest pain shortness of breath headache vision changes fevers or chills at this time. Onset (ago): day(s) Radiation: non-radiation Pain Scale: 0 Consistency: intermittent Improves with: nothing Worsens with: nothing, eating Associated symptoms: Reports: loss of appetite, nausea/vomiting Treatments Prior to Arrival: none - Related Data Home Medications Medication Instructions Recorded Confirmed Lisinopril [Zestril] 30 mg PO DAILY 02/10/15 07/09/16 Potassium Chloride 20 meq PO TID 02/10/15 07/09/16 Atorvastatin [Lipitor] 40 mg PO HS 03/10/15 07/09/16 Calcium Carbonate/Vitamin D3 2 tab PO DAILY 03/10/15 07/09/16 [Calcium 600 + D Tablet] Docusate [Colace] 100 mg PO BID 03/10/15 07/09/16 Pantoprazole Sodium [Protonix] 20 mg PO DAILY 03/10/15 07/09/16 Sennosides/Docusate Sodium [Senna 1 each PO DAILY 03/10/15 07/09/16 Plus] Verapamil ER (24 HR) [Calan SR] 120 mg PO DAILY 03/10/15 07/09/16 Furosemide [Lasix] 20 mg PO DAILY 03/11/15 07/09/16 Ergocalciferol (VITAMIN D2) 50,000 unit PO QWEEK 07/09/16 07/09/16 [Vitamin D2] Gabapentin [Neurontin] 100 mg PO TID 07/09/16 07/09/16 Paroxetine [Paxil] 40 mg PO DAILY 07/09/16 07/09/16 clonazePAM [Klonopin] 0.25 mg PO BID 07/09/16 07/09/16 Cyanocobalamin (Vitamin B-12) 250 mcg PO DAILY 02/19/17 02/19/17 [Vitamin B-12] Donepezil [Aricept] 10 mg PO HS 02/19/17 02/19/17 Memantine [Namenda] 5 mg PO BID 02/19/17 02/19/17 OLANZapine [Zyprexa] 10 mg PO HS 02/19/17 02/19/17 Previous Rx's Medication Instructions Recorded Folic Acid 1 mg PO DAILY #0 tablet 01/22/15 Isosorbide DInitrate [Isordil] 30 mg PO TID #0 tablet 01/22/15 Multivit/Ca/Min/Fe/FA [Thera M 1 tab PO DAILY #0 tablet 01/22/15 Plus] Rivaroxaban [Xarelto] 20 mg PO DAILY #0 tablet 01/22/15 TraZODone 50 mg PO HS #7 tablet 03/25/15 Allergies Allergy/AdvReac Type Severity Reaction Status Date / Time aspirin Allergy Anaphylaxis Verified 07/09/16 10:35 Penicillins Allergy Anaphylaxis Verified 07/09/16 10:35 All systems ED: reviewed and negative except as stated. Review of Systems: As Per HPI Constitutional: Reports: weakness. Denies: fever, chills Cardiovascular: Denies: chest pain, palpitations, dyspnea on exertion, orthopnea Respiratory: Denies: cough, dyspnea, wheezes Gastrointestinal: Reports: abdominal pain, nausea, vomiting. Denies: diarrhea, constipation Genitourinary: Denies: urgency, dysuria, frequency Musculoskeletal: Denies: back pain, neck pain Neurological: Denies: headache, weakness Endocrine: Reports: fatigue Past Medical History - Past Medical History Attestation: Yes The following information was validated with the patient. 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 - Social History Smoking Status: Former smoker Smokeless Tobacco Status: No Alcohol use: Reports: none Drug use: Reports: none Physical Exam - General Limitations: no limitations General appearance: alert, in no apparent distress - Head Head exam: atraumatic, normocephalic, normal inspection - Eye Eye exam: Present: normal appearance, PERRL, EOMI - ENT ENT exam: normal exam, normal oropharynx, mucous membranes moist - Chest Chest inspection: Present: normal inspection, symmetric chest wall rise - Respiratory Respiratory exam: Present: normal lung sounds bilaterally - Cardiovascular Cardiovascular exam: Present: regular rate, normal rhythm, normal heart sounds - Abdominal Exam Abdominal exam: Present: soft, tenderness, normal bowel sounds. Absent: distention, guarding, rebound, rigidity, diminished bowel sounds - Extremities Exam Extremities exam: Present: normal inspection, full ROM, normal capillary refill. Absent: tenderness, pedal edema - Back Exam Back exam: Present: normal inspection, full ROM. Absent: tenderness, CVA tenderness (R), CVA tenderness (L) - Neurological Exam Neurological exam: Present: alert - Skin Skin exam: Present: warm, dry, intact, normal color Course Course Narrative: patient seen and examined at the time of arrival. See history of present illness. 66-year-old female presents emergency room for evaluation of nausea vomiting and abdominal pain. Patient is chronically debilitated secondary to strokes having known seizure history as well as dementia and psychiatric related issues. Patient on presentation is resting comfortably in the bed denying any acute symptoms at this time. Physical exam she is well-appearing pupils are equal and reactive mucous members are moist. Lungs are clear heart is regular abdomen is soft nontender nondistended with mild discomfort in the midepigastric area but no specific guarding or rigidity. Patient was also extremity falls commands appropriately answers questions appropriately in presentation. Physical exam is concerning for possible viral related syndrome at this point causing acute nausea and vomiting. Patient has been unable to eat or drink anything for the last 3 days. Patient will be provided with fluids and nausea medication pain control as needed and will have laboratory workup including CT of the abdomen chest x-ray and EKG to be resulted. Patient is otherwise resting comfortably in the bed. Will continue to monitor course is completed. - Reevaluation(s) Reevaluation #1: Patient acute kidney insufficiency along with hypernatremia hyperchloremia which could be consistent with her emesis. Her GFR and BUn are both elevated. Urinalysis is otherwise unremarkable and her CBC is normal. Patient provided with a liter of fluids here and given oral hydration this time her free water. Patient I review the presentation symptoms. EKG shows T-wave inversions in the anterolateral leads but otherwise it is unremarkable and no acute signs of ST segment elevation. The troponin is also negative at this point. Patient is resting comfortably in the bed with no symptoms at this time. She is taking in fluids by mouth at this time another complication. Detailed review the presentation symptoms and medical intervention were discussed and reviewed with the hospitalist Dr. Ivy. I reviewed the presentation symptoms medical evaluation in detail. Troponin is 0.02 this time. No other concerns or issues noted this time patient will be admitted to the hospital for definitive management. Time: 11:08 Vital Signs Temperature 98.7 F 02/19/17 07:48 Pulse Rate 85 02/19/17 07:48 Respiratory Rate 16 02/19/17 07:48 Blood Pressure 155/115 02/19/17 07:48 O2 Sat by Pulse Oximetry 95 02/19/17 07:48 Temperature 98.7 F 02/19/17 07:48 Pulse Rate 68 02/19/17 07:58 Respiratory Rate 18 02/19/17 07:58 Blood Pressure 146/78 02/19/17 07:58 O2 Sat by Pulse Oximetry 95 02/19/17 07:58 Oxygen Delivery Oxygen Delivery Room Air Medical Decision Making - MDM Narrative Medical decision making narrative: Nausea, vomiting, abdominal pain and acute kidney injury, dehydration, hypernatremia - Medical Records Medical records reviewed: Yes I reviewed the patient's medical records. - Lab Data Lab results reviewed: Yes I reviewed the patient's lab results. Result diagrams: 02/19/17 08:01 02/19/17 08:01 Lab Results 02/19/17 02/19/17 02/19/17 Range/Units 08:01 08:01 08:01 WBC 13.5 H (4.3-11.1) K/mcL RBC 4.42 (3.82-4.97) M/mcL Hgb 14.5 (11.5-15.4) g/dL Hct 42.8 (35.3-44.9) % MCV 96.8 (83.0-100.0) fL MCH 32.8 (28.0-33.3) pg MCHC 33.9 (31.6-35.5) g/dL RDW 13.5 (11.5-14.5) % Plt Count 230 (140-400) K/mcL MPV 9.8 (9.4-12.4) fL Immature Gran % 0.7 (0-4) % Seg Neutrophils % 82.9 % Lymphocytes % 10.3 % Monocytes % 5.7 % Eosinophils % 0.1 % Basophils % 0.3 % Neutrophils # 11.2 H (1.6-8.9) K/mcL Lymphocytes # 1.4 (0.6-4.6) K/mcL Monocytes # 0.8 (0.0-1.3) K/mcL Eosinophils # 0.0 (0.0-0.6) K/mcL Basophils # 0.0 (0.0-0.2) K/mcL Sodium 153 H (136-145) mEq/L Potassium 4.0 (3.5-4.5) mEq/L Chloride 117 H (98-109) mEq/L Carbon Dioxide 22 (19-29) mEq/L BUN 43 H (7-20) mg/dL Creatinine 1.84 H (0.57-1.11) mg/dL Est GFR ( Amer) 33 L (> 60) Est GFR (Non-Af Amer) 27 L (> 60) BUN/Creatinine Ratio 23 (6-26) Glucose 138 H (70-99) mg/dL Calculated Osmolality 329 H (280-300) Calcium 9.5 (8.6-10.8) mg/dL Total Bilirubin 0.6 (0.2-1.2) mg/dL Direct Bilirubin 0.3 (0.0-0.5) mg/dL Indirect Bilirubin 0.3 (0.0-1.2) mg/dL AST 18 (5-34) Units/L ALT 16 (0-55) Units/L Alkaline Phosphatase 112 (38-126) Units/L Serum Total Protein 8.5 H (6.0-8.3) g/dL Albumin 4.1 (3.5-5.0) g/dL Globulin 4.4 H (2.4-3.5) g/dL Albumin/Globulin Ratio 0.9 L (1.1-2.2) Lipase 23 (8-78) Units/L Urine Color (Yellow) Urine Clarity (Clear) Urine pH (5.0-8.0) pH Units Ur Specific [place] (1.010-1.025) Urine Protein (Neg-Trace) mg/dL Urine Glucose (UA) (Normal) mg/dL Urine Ketones (Negative) mg/dL Urine Blood (Negative) Urine Nitrite (Negative) Urine Bilirubin (Negative) Urine Urobilinogen (Normal) mg/dL Ur Leukocyte Esterase (Negative) Urine Microscopic RBC (0-3) per hpf Urine Microscopic WBC (0-3) per hpf Ur Squamous Epith Cells (None-Few) per lpf Urine Bacteria (None-Few) per hpf Hyaline Casts Ur Culture Indicated? (NO) 02/19/17 Range/Units 08:05 WBC (4.3-11.1) K/mcL RBC (3.82-4.97) M/mcL Hgb (11.5-15.4) g/dL Hct (35.3-44.9) % MCV (83.0-100.0) fL MCH (28.0-33.3) pg MCHC (31.6-35.5) g/dL RDW (11.5-14.5) % Plt Count (140-400) K/mcL MPV (9.4-12.4) fL Immature Gran % (0-4) % Seg Neutrophils % % Lymphocytes % % Monocytes % % Eosinophils % % Basophils % % Neutrophils # (1.6-8.9) K/mcL Lymphocytes # (0.6-4.6) K/mcL Monocytes # (0.0-1.3) K/mcL Eosinophils # (0.0-0.6) K/mcL Basophils # (0.0-0.2) K/mcL Sodium (136-145) mEq/L Potassium (3.5-4.5) mEq/L Chloride (98-109) mEq/L Carbon Dioxide (19-29) mEq/L BUN (7-20) mg/dL Creatinine (0.57-1.11) mg/dL Est GFR ( Amer) (> 60) Est GFR (Non-Af Amer) (> 60) BUN/Creatinine Ratio (6-26) Glucose (70-99) mg/dL Calculated Osmolality (280-300) Calcium (8.6-10.8) mg/dL Total Bilirubin (0.2-1.2) mg/dL Direct Bilirubin (0.0-0.5) mg/dL Indirect Bilirubin (0.0-1.2) mg/dL AST (5-34) Units/L ALT (0-55) Units/L Alkaline Phosphatase (38-126) Units/L Serum Total Protein (6.0-8.3) g/dL Albumin (3.5-5.0) g/dL Globulin (2.4-3.5) g/dL Albumin/Globulin Ratio (1.1-2.2) Lipase (8-78) Units/L Urine Color Dark Yellow (Yellow) Urine Clarity Cloudy A (Clear) Urine pH 5.0 (5.0-8.0) pH Units Ur Specific [place] 1.027 H (1.010-1.025) Urine Protein 100 H (Neg-Trace) mg/dL Urine Glucose (UA) Normal (Normal) mg/dL Urine Ketones Negative (Negative) mg/dL Urine Blood Trace H (Negative) Urine Nitrite Negative (Negative) Urine Bilirubin Small H (Negative) Urine Urobilinogen Normal (Normal) mg/dL Ur Leukocyte Esterase Negative (Negative) Urine Microscopic RBC 3-5 H (0-3) per hpf Urine Microscopic WBC 0-3 (0-3) per hpf Ur Squamous Epith Cells Many H (None-Few) per lpf Urine Bacteria None Seen (None-Few) per hpf Hyaline Casts Test Not Performed Ur Culture Indicated? NO (NO) - Radiology Data Radiology results reviewed: Yes I reviewed the patient's radiology results. CT imaging of the abdomen is otherwise unremarkable except for inflammation around the stomach. Chest x-ray is reviewed and otherwise is stable - EKG Data EKG #1 EKG attestation: Yes I reviewed and interpreted this EKG. EKG results narrative: EKG reviewed and compared to EKG on 07/08/16. EKG shows ventricular rate of 71. CO interval 166. QRS duration of 77. QTC of 414. Morphology appears to be stable in comparison to previous EKG patient does have new T-wave inversions in leads 1 aVL 45 and 6 in the precordial leads. No acute signs of ST segment elevation or abnormality noted at this time. Q waves are present in the previous EKG EKG shows normal: sinus rhythm, axis, intervals, QRS complexes, ST-T waves Rate: normal
[2017-02-19] MEDS ORDERED: Naloxone 0.4 MG/ML INJ IVP PRN (11:17)
[2017-02-19] MEDS ORDERED: Acetaminophen 325 MG TABLET PO PRN (11:17)
[2017-02-19] MEDS ORDERED: Ondansetron 4 MG/2 ML VIAL IVP PRN (11:17)
[2017-02-19] MEDS ORDERED: *HR* HYDROcodone/Acet 5/325 mg TABLET PO PRN (11:17)
[2017-02-19] MEDS ORDERED: 0.9 % Sodium Chloride 1,000 ML IVC SCH (11:45)
--- NOTE | 2017-02-19 11:49 | Internal Med History&Physical ---
<Fritz Gifford - Last Filed: 02/19/17 19:28> Date of Encounter: 02/19/17 Time of Encounter: 10:45 Assessment and Plan (1) Nausea and vomiting Current visit: Yes Status: Acute Patient presents with acute nausea and vomiting x 3 days. Patient states she is unable to hold anything down. NPO status except ice chips and medications. Will advance diet as tolerated. IVP Zofran Q6 PRN and IVP Protonix 40 mg BID. Monitor I&O and daily weight. Qualifiers: Vomiting type: unspecified Vomiting Intractability: unspecified Qualified Code(s): R11.2 - Nausea with vomiting, unspecified (2) Leukocytosis Current visit: Yes Status: Acute Patient presents with WBC of 13.5 on admission. Current leukocytosis most likely due to reactive from current N/V/dehydration status versus infection. Blood cultures x2 ordered. Patient is currently afebrile and does not meet sepsis criteria. Will monitor patient for signs of increasing infection and administer abx accordingly. Qualifiers: Leukocytosis type: unspecified Qualified Code(s): D72.829 - Elevated white blood cell count, unspecified (3) Generalized weakness Current visit: Yes Status: Acute Patient reports generalized weakness from current N/V/dehydration as well as residual weakness from previous CVA. Falls/safety precautions. PT/OT consults placed to assess patient for strength, stability, and ambulation needs. (4) Hypernatremia Current visit: Yes Status: Acute Current sodium of 153 and chloride of 117 on admission. Stat chem 7 ordered. Will adjust IV fluid for dehydration correction based on chem 7 results with either IV 0.9 NS, D5, or 0.45. Monitor f/u labs. (5) Dehydration Current visit: Yes Status: Acute Acute dehydration from acute N/V. IV 0.9 NS administered in ED. Stat chem 7 ordered to assess sodium/chloride status. Will continue IV D5 or 0.45 NS based on chem 7 results at low rate due to current JAIME. Monitor f/u labs for electrolyte status. (6) JAIME (acute kidney injury) Current visit: Yes Status: Acute JAIME most likely due to current dehydration from nausea and vomiting x3 days. Will use gentle hydration for dehydration correction and avoid nephrotoxins. Monitor I&O and daily weight. (7) Hyperglycemia Current visit: Yes Status: Acute Patient denies hx of diabetes but presents with BG of 138 on admission. BG checks Q6. (8) HTN (hypertension) Current visit: Yes Status: Chronic Hx of chronic HTN. Continue patient's verapamil and lisinopril. Monitor VS. Qualifiers: Hypertension type: essential hypertension Qualified Code(s): I10 - Essential (primary) hypertension (9) HLD (hyperlipidemia) Current visit: Yes Status: Chronic Hx of chronic HLD. Lipid panel ordered in a.m. labs. Continue patient's Lipitor. Qualifiers: Hyperlipidemia type: pure hypercholesterolemia Qualified Code(s): E78.00 - Pure hypercholesterolemia, unspecified; E78.0 - Pure hypercholesterolemia (10) GERD (gastroesophageal reflux disease) Current visit: Yes Status: Chronic Hx of chronic GERD. IVP Protonix 40 mg BID. Qualifiers: Esophagitis presence: esophagitis presence not specified Qualified Code(s) : K21.9 - Gastro-esophageal reflux disease without esophagitis (11) Depression with anxiety Current visit: Yes Status: Chronic Hx of chronic anxiety and depression. Will continue patient's Paxil, Klonopin, and Zyprexa. (12) Chronic anticoagulation Current visit: Yes Status: Chronic Patient is anti-coagulated due to hx of arrhythmia. Continue Xarelto. Assess for unusual bleeding. (13) DVT prophylaxis Current visit: Yes Status: Acute We will continue patient's Xarelto for DVT prophylaxis. Internal Medicine - H&P: HPI Chief complaint: Nausea and Vomiting Admitted From: Emergency Dept Plans for Post Hospital Care: Transfer Long-Term Facility History of present illness: Ms. Zepeda is a 66 year old female with medical history of CVA in 1950, GERD , hyperlipidemia, hypertension, myocardial infarction many years ago with no heart catheterization or stent placement, RA, osteoarthritis, seizures, and TIAs with most recent being last year presents from the ED with chief complaint of nausea and vomiting for the past 3 days. Patient states she is unable to keep anything, including medications, down. States she vomited more than 3 times today. Patient has previous history of CVA and has residual bilateral weakness and speech deficit. Ms. Zepeda states she uses a walker at the SNF she resides at but reports hx of falls. Patient reports weakness, abdominal pain, nausea, vomiting but denies fever, chills, chest pain, palpitations, dyspnea, orthopnea, cough, diarrhea, constipation, unusual bleeding, headache, dizziness, lightheadedness, fatigue, presyncope, or syncope. CT of the abdomen/ pelvis today without contrast shows new moderate L2 vertebral compression fracture when compared to 10/13/14. No retropulsion and spinal canal. This is age indeterminate by imaging. Subcentimeter slightly hyperdense renal lesions on the right are not fully characterized on this noncontrast examination. These are favored represent proteinacious cyst although confirmation with renal ultrasound is recommended non-emergently. Colonic diverticulosis. No CT evidence of acute diverticulitis. Small hiatal hernia with nonspecific thickening of distal esophagus and herniated stomach. Single view CXR today shows basilar atelectasis with no acute cardiopulmonary disease. Upon admission , patient's vital signs include temperature of 90 8.7F heart rate of 60 bpm, respiratory rate of 18, BP of 146/78, and SPO2 of 95% on room air. Abnormal labs include WBC of 13.5, sodium of 153, chloride of 117, BUN of 43, creatinine of 1.84, GFR 27, and glucose of 138. On examination, patient is febrile. Patient 's HR is 71 bpm with arryhthmia. Lungs are clear bilaterally on auscultation. Patient has mild abdominal pain with palpation an bilateral, non-pitting pedal edema is present which patient states is her normal. Patient is currently stable and is at high risk due to dehydration from 3 days of N/V, current WBC of 13.5, history, and risk factors and will be placed as observation status. Time spent with patient >40 minutes. Past Med Surg Social Fam HX - Past Medical History Source: patient, old records reviewed Medical history: CVA, GERD, hyperlipidemia, hypertension, myocardial infarction (1950 without heart cath or stent placement), RA, seizures, TIA (Last year), other (Osteoarthritis) Psychiatric history: depression, other - Past Surgical History Surgical History: cholecystectomy, PAXTON/BSO - Social History Smoking Status: Never smoker Smokeless Tobacco Status: No Alcohol use: none Drug use: none Current living situation: Assisted Living Activity Level: Uses cane/walker Recent Out of Country Travel Within the Last 8 Weeks: No Exposure or Possible Exposure to Illness During Travel: No - Family History Mother Race: Family Member Ethnicity: Non- Living Status: Age at : 81 Cause of : [place] Hx Family Cardiac Disorders: Yes (CAD, [place], HTN, HLD) Father Race: Family Member Ethnicity: Non- Living Status: Age at : 60 Cause of : Brain tumor Hx Family Cancer: Yes (Brain) Brother Race: Family Member Ethnicity: Non- Living Status: Cause of : [place] Hx Family Cardiac Disorders: Yes (CAD, [place], HTN, HLD) Sister Race: Family Member Ethnicity: Non- Living Status: Still Living Hx Family Cardiac Disorders: Yes ([place], CAD, HTN) Internal Medicine - H&P: Meds Folic Acid 1 mg PO DAILY #0 tablet 01/22/15 [Rx] Isosorbide DInitrate [Isordil] 30 mg PO TID #0 tablet 01/22/15 [Rx] Multivit/Ca/Min/Fe/FA [Thera M Plus] 1 tab PO DAILY #0 tablet 01/22/15 [Rx] Rivaroxaban [Xarelto] 20 mg PO DAILY #0 tablet 01/22/15 [Rx] Lisinopril [Zestril] 30 mg PO DAILY 02/10/15 [History] Potassium Chloride 20 meq PO TID 02/10/15 [History] Atorvastatin [Lipitor] 40 mg PO HS 03/10/15 [History] Calcium Carbonate/Vitamin D3 [Calcium 600 + D Tablet] 2 tab PO DAILY 03/10/15 [ History] Docusate [Colace] 100 mg PO BID 03/10/15 [History] Pantoprazole Sodium [Protonix] 40 mg PO DAILY 03/10/15 [History] Sennosides/Docusate Sodium [Senna Plus] 1 each PO DAILY 03/10/15 [History] Verapamil ER (24 HR) [Calan SR] 120 mg PO DAILY 03/10/15 [History] Furosemide [Lasix] 20 mg PO DAILY 03/11/15 [History] TraZODone 50 mg PO HS #7 tablet 03/25/15 [Rx] Ergocalciferol (VITAMIN D2) [Vitamin D2] 50,000 unit PO QWEEK 07/09/16 [History] Gabapentin [Neurontin] 100 mg PO TID 07/09/16 [History] Paroxetine [Paxil] 40 mg PO DAILY 07/09/16 [History] clonazePAM [Klonopin] 0.25 mg PO BID 07/09/16 [History] Cyanocobalamin (Vitamin B-12) [Vitamin B-12] 250 mcg PO DAILY 02/19/17 [History] Donepezil [Aricept] 10 mg PO HS 02/19/17 [History] Memantine [Namenda] 5 mg PO BID 02/19/17 [History] OLANZapine [Zyprexa] 10 mg PO HS 02/19/17 [History] 3 Allergy/AdvReac Type Severity Reaction Status Date / Time aspirin Allergy Anaphylaxis Verified 07/09/16 10:35 Penicillins Allergy Anaphylaxis Verified 07/09/16 10:35 All Systems PM: A 10-system review of systems was performed and is negative for pertinent findings except as documented above in the HPI. - Constitutional Constitutional: as per HPI, falls, weakness - EENT Eyes: no change in vision, no discharge, no pain, no photophobia Ears: no ear discharge, no ear pain, no tinnitus Nose, mouth and throat: no dysphagia, no nasal discharge, no neck pain, no sore throat - Breasts Breasts: as per HPI - Cardiovascular Cardiovascular ROS IM: as per HPI, edema, irregular heart rhythm, no chest pain , no diaphoresis, no dyspnea, no lightheadedness, no palpitations, no syncope - Respiratory Respiratory: no cough, no dyspnea, no wheezing, no excessive phlegm production - Gastrointestinal Gastrointestinal: as per HPI, abdominal pain, heartburn, nausea, vomiting - Genitourinary Genitourinary: no change in urinary stream, no dysuria, no flank pain, no hematuria Menstruation: as per HPI - Musculoskeletal Musculoskeletal ROS IM: as per HPI, arthralgias, muscle weakness - Integumentary Integumentary IM: no rash, no unusual bruising - Neurological Neurological ROS: no confusion, no convulsions, no focal weakness, no numbness, no tingling, no tremor(s) - Psychiatric Psychiatric: as per HPI - Endocrine Endocrine IM: as per HPI - Hematologic/Lymphatic Hematologic/Lymphatic: no easy bruising - Allergic/Immunologic Allergic/Immunologic: as per HPI - Constitutional Vitals: Temp Pulse Resp BP Pulse Ox 98.7 F 86 20 115/61 95 02/19/17 07:48 02/19/17 10:49 02/19/17 10:49 02/19/17 10:49 02/19/17 10:49 General appearance: Present: cooperative, A&O X 3, pleasant, no acute distress, answers questions appropriately - Head Head exam: Present: atraumatic, normocephalic - Eye Eye exam: Present: PERRL, conjuntiva pink, sclera anicteric Pupils: Present: PERRL - ENT ENT exam: Present: normal exam, normal external ear exam - Neck Neck exam general surgery: Present: normal inspection, supple, trachea midline. Absent: lymphadenopathy - Respiratory Respiratory exam: Present: CTAB. Absent: accessory muscle use, rales, rhonchi, wheezes - Cardiovascular Cardiovascular exam: Present: irregular rhythm - GI/Abdominal GI/Abdominal exam: Present: diminished bowel sounds, soft, tenderness, no peritoneal signs. Absent: distended - Rectal Rectal exam: Present: deferred - Additional comments: exam deferred. - Extremities Exam Extremities exam: Present: pedal edema, warm, radial pulses palpable and symmetrical - Back Exam Back exam: Present: normal inspection - Neurological Exam Neurological exam: Present: CN II-XII intact, oriented X3, no focal deficits, speech deficit (Residual from previous CVA). Absent: pronater drift, facial droop - Psychiatric Psychiatric exam: Present: normal affect, normal mood - Skin Skin exam: Present: dry, intact Internal Med - H&P Results - Labs CBC & Chem 7: 02/19/17 08:01 02/19/17 19:02 - EKG Data EKG shows normal: sinus rhythm - EKG Data Prior EKG available for review: yes When compared to previous EKG: there are significant changes Interpretation IM: suggestive of ischemia EKG comments: 02/19/17 12:25 EKG dated 07/08/16 shows sinus rhythm with marked left axis deviation with possible inferior myocardial infarction, probably old. EKG dated 02/19/17 shows sinus rhythm with sinus arrhythmia, possible left atrial enlargement, marked left axis deviation, left ventricular hypertrophy and ST-T change, and possible inferior myocardial infarction of indeterminate age. - Diagnostic Studies Chest x-ray Additional comments: Impressions Chest X-Ray 02/19/17 07:53 IMPRESSION: No acute cardiopulmonary disease. D/ / Soraida Baird MD / Soraida Baird MD Interpreting Provider: Soraida Baird MD CT scan - abdomen Additional comments: Impressions Abdomen/Pelvis CT 02/19/17 07:52 IMPRESSION: 1. New moderate L2 vertebral body compression fracture when compared to 10/13/2014. No retropulsion into spinal canal. This is age indeterminate by imaging. 2. Subcentimeter slightly hyperdense renal lesions on the right are not fully characterized on this noncontrast examination. These are favored represent proteinaceous cyst, although, confirmation with renal ultrasound is recommended non emergently. 3. Colonic diverticulosis. No CT evidence of acute diverticulitis. 4. Small hiatal hernia, with nonspecific thickening of distal esophagus and herniated stomach. D/ / Kumar Emmanuel / Kumar Emmanuel Interpreting Provider: Kumar Emmanuel <Esteban Ivy - Last Filed: 02/19/17 20:19> Date of Encounter: 02/19/17 Internal Medicine - H&P: HPI History of present illness: Ms. Zepeda is a 66 year old female All Systems PM: A 10-system review of systems was performed and is negative for pertinent findings except as documented above in the HPI. - Constitutional Vitals: Temp Pulse Resp BP Pulse Ox 98.1 F 58 15 127/73 92 02/19/17 19:46 02/19/17 19:46 02/19/17 19:46 02/19/17 19:46 02/19/17 19:46 Internal Med - H&P Results - Labs CBC & Chem 7: 02/19/17 08:01 02/19/17 19:02 Labs: BMP 02/19/17 02/19/17 12:16 19:02 Sodium 153 H 146 H Potassium 3.8 4.0 Chloride 117 H 116 H Carbon Dioxide 24 19 BUN 40 H 35 H Creatinine 1.64 H 1.29 H Glucose 132 H 121 H Calcium 9.1 8.2 L - Attending Attestation I independently obtained history and examined this patient and my medical decision-making was reviewed with the nurse practitioner. I agree with the documented findings, disposition and treatment plan as described. My findings are summarized below: Patient is being admitted for nausea vomiting, dehydration, hypernatremia and acute kidney injury. She is awake alert and oriented 3. Plan: She received normal saline in the emergency department. Repeat sodium level was 157. We will switch to half-normal saline and monitor sodium levels closely to achieve no more than 10 mEq drop and 24 hours.
[2017-02-19 14:12] LABS: Calcium 9.1 mg/dL (8.6-10.8); Potassium 3.8 mEq/L (3.5-4.5)
[2017-02-19] MEDS: Gabapentin 100 MG CAPSULE PO SCH ×2 (15:39→20:42)
[2017-02-19] MEDS: Cholecalciferol (D-3) 1,000 UNIT TABLET PO SCH (15:39)
[2017-02-19 19:27] LABS: Calcium 8.2 mg/dL (8.6-10.8)
[2017-02-19] MEDS: traZODone 50 MG TABLET PO SCH (20:42)
[2017-02-19] MEDS: clonazePAM 0.5 MG TABLET PO SCH (20:43)
[2017-02-19] MEDS: OLANZapine 10 MG TAB.RAPDIS PO SCH (20:43)
[2017-02-19] MEDS: Pantoprazole 40 MG VIAL IVP SCH (20:43)
[2017-02-20 05:53] LABS: Basophils % 0.5 %; Eosinophils # 0.2 K/mcL (0.0-0.6); Eosinophils % 2.6 %; Hematocrit 35.3 % (35.3-44.9); Immature Granulocytes % 0.2 % (0-4); Lymphocytes # 2.5 K/mcL (0.6-4.6); Lymphocytes % 42.9 %; Mean Platelet Volume 9.5 fL (9.4-12.4); Monocytes % 7.8 %; Neutrophils # 2.6 K/mcL (1.6-8.9); Platelet Count 178 K/mcL (140-400); Red Blood Count 3.53 M/mcL (3.82-4.97); Red Cell Distribution Width 13.8 % (11.5-14.5)
[2017-02-20 05:55] LABS: Hemoglobin 11.3 g/dL (11.5-15.4); Monocytes # 0.4 K/mcL (0.0-1.3)
[2017-02-20 06:02] LABS: INR 1.1; Prothrombin Time 12.4 Seconds (9.4-12.1)
[2017-02-20 06:04] LABS: Activated Partial Thrombo Time 28.7 Seconds (26.0-36.0)
[2017-02-20 06:10] LABS: Albumin/Globulin Ratio 0.9 (1.1-2.2); Calcium 8.2 mg/dL (8.6-10.8); Chol/HDL Ratio 2.4 (0-4.9); Globulin 3.3 g/dL (2.4-3.5); Magnesium 1.7 mg/dL (1.6-2.6); Potassium 3.9 mEq/L (3.5-4.5)
[2017-02-20 06:11] LABS: Albumin 3.1 g/dL (3.5-5.0); Total Protein 6.4 g/dL (6.0-8.3)
[2017-02-20] MEDS ORDERED: Furosemide 20 MG TABLET PO SCH (09:00)
[2017-02-20] MEDS ORDERED: *HR* Rivaroxaban 10 MG TABLET PO SCH (09:00)
[2017-02-20] MEDS: Multivit/Ca/Min/Fe/FA 1 TAB TABLET PO SCH (09:26)
[2017-02-20] MEDS: Cholecalciferol (D-3) 1,000 UNIT TABLET PO SCH (09:26)
[2017-02-20] MEDS: Pantoprazole 40 MG VIAL IVP SCH (09:26)
[2017-02-20] MEDS: Sennosides/Docusate Sodium TABLET PO SCH (09:27)
[2017-02-20] MEDS: clonazePAM 0.5 MG TABLET PO SCH ×2 (09:28→20:24)
[2017-02-20] MEDS: Cyanocobalamin (B-12) 1,000 MCG TABLET PO SCH (09:28)
[2017-02-20] MEDS: Folic Acid 1 MG TABLET PO SCH (09:29)
[2017-02-20] MEDS: Gabapentin 100 MG CAPSULE PO SCH ×3 (09:33→20:24)
[2017-02-20] MEDS: Verapamil ER (24 HR) 120 MG TABLET.ER PO SCH (09:33)
--- NOTE | 2017-02-20 11:48 | Internal Med Progress Note ---
<Jeanette Dyer - Last Filed: 02/20/17 12:48> Date of Encounter: 02/20/17 Time of Encounter: 10:20 - Assessment and plan (1) Nausea and vomiting Current Visit: Yes Status: Acute Assessment and plan: Patient states that her nausea and vomiting has resolved. Speech evaluated her and recommended soft diet with advancement to regular diet as tolerated she was able to tolerate a breakfast chest x-ray was normal CT abdomen showed small hiatal hernia and nonspecific thickening of distal esophagus. New compression fracture, renal cyst and diverticulosis -Continue Zofran & Protonix -blood cultures pending -continue to monitor -stopped IV fluids -encourage oral intake of fluids Qualifiers: Vomiting type: unspecified Vomiting Intractability: unspecified Qualified Code(s): R11.2 - Nausea with vomiting, unspecified (2) Generalized weakness Current Visit: Yes Status: Acute Assessment and plan: Patients has a residual weakness from a previous CVA -fall/safety precautions -PT/OT consulted (3) Leukocytosis Current Visit: Yes Status: Acute Assessment and plan: Within normal limits. Most likely due to vomiting Qualifiers: Leukocytosis type: unspecified Qualified Code(s): D72.829 - Elevated white blood cell count, unspecified (4) JAIME (acute kidney injury) Current Visit: Yes Status: Acute Assessment and plan: JAIME resolved Creatinine has improved and is within normal limits -stop IV fluids -hold Lasix -encourage oral intake -Monitor creatinine (5) Anemia Current Visit: Yes Status: Acute Assessment and plan: Hemoglobin decreased to 11.3 from admissions 14.5 most likely delutional due to IV fluid rehydration no active bleeding patient denies Hemetemesis, hematechezia, melena -Continue to monitor H&H -Monitor for active bleeding Qualifiers: Qualified Code(s): D64.9 - Anemia, unspecified (6) Chronic anticoagulation Current Visit: Yes Status: Chronic Assessment and plan: Patient has an arrhythmia for which she is on anticoagulation no active bleeding -Continue home xarelto -Monitor for bleeding (7) Depression Current Visit: No Status: Chronic Assessment and plan: Patient has a history of depression -continue medications Qualifiers: Depression Type: unspecified Qualified Code(s): F32.9 - Major depressive disorder, single episode, unspecified (8) DVT prophylaxis Current Visit: Yes Status: Acute Assessment and plan: we will continue patient's Xarelto for DVT prophylaxis. - Subjective Interval history: Patient sitting up in her chair comfortably watching television she reports that her nausea and vomiting has resolved with the help of the medication she has no complaints. She denies fever, chills, abdominal pain, nausea, vomiting - Constitutional Vitals: Temp Pulse Resp BP Pulse Ox 97.3 F L 60 14 112/70 97 02/20/17 10:46 02/20/17 10:46 02/20/17 10:46 02/20/17 10:46 02/20/17 10:46 General appearance: Present: cooperative, A&O X 3, pleasant, no acute distress, answers questions appropriately Exam: Gen.: Vitals noted. No acute distress. AAOx3 HEENT: oropharynx clear, Normocephalic, atraumatic Cardiac: irregular rhythm, no murmur, +S1/S2 Pulmonary: CTA bilaterally, no wheezes, rales or rhonchi, equal chest expansion Abdomen: soft, nontender, Bowel sounds noted, no guarding Back: Nontender throughout. MSK: ROM intact, no joint swelling noted Extremities: no BLE edema, nontender calf, no cyanosis or clubbing Neuro: A&Ox3, moves all extremities, no focal deficits Psych: Appropriate mood and behavior Internal Medicine: Result - Labs CBC & Chem 7: 02/20/17 05:28 02/20/17 05:28 Labs: Short CBC 02/20/17 Range/Units 05:28 WBC 5.7 D (4.3-11.1) K/mcL Hgb 11.3 L D (11.5-15.4) g/dL Hct 35.3 (35.3-44.9) % Plt Count 178 (140-400) K/mcL Neutrophils # 2.6 (1.6-8.9) K/mcL BMP 02/19/17 02/19/17 02/20/17 12:16 19:02 05:28 Sodium 153 H 146 H 144 Potassium 3.8 4.0 3.9 Chloride 117 H 116 H 116 H Carbon Dioxide 24 19 23 BUN 40 H 35 H 29 H Creatinine 1.64 H 1.29 H 1.10 Glucose 132 H 121 H 105 H Calcium 9.1 8.2 L 8.2 L Liver Function 02/20/17 Range/Units 05:28 Total Bilirubin 1.0 D (0.2-1.2) mg/dL AST 21 (5-34) Units/L ALT 13 (0-55) Units/L Alkaline Phosphatase 84 (38-126) Units/L Albumin 3.1 L D (3.5-5.0) g/dL - ABG Interpretation ABG results: PT/INR, D-dimer PT 12.4 Seconds (9.4-12.1) H 02/20/17 05:28 Consult Discharge Plan - Plan Referrals: Suzanna Cody MD [Primary Care Provider] - <ZeeshanCostacolton - Last Filed: 02/20/17 15:43> Date of Encounter: 02/20/17 - Constitutional Vitals: Temp Pulse Resp BP Pulse Ox 97.7 F 81 14 123/66 95 02/20/17 14:09 02/20/17 14:09 02/20/17 14:09 02/20/17 14:09 02/20/17 14:09 Internal Medicine: Result - Labs CBC & Chem 7: 02/20/17 05:28 02/20/17 05:28 Labs: Short CBC 02/20/17 Range/Units 05:28 WBC 5.7 D (4.3-11.1) K/mcL Hgb 11.3 L D (11.5-15.4) g/dL Hct 35.3 (35.3-44.9) % Plt Count 178 (140-400) K/mcL Neutrophils # 2.6 (1.6-8.9) K/mcL BMP 02/19/17 02/20/17 19:02 05:28 Sodium 146 H 144 Potassium 4.0 3.9 Chloride 116 H 116 H Carbon Dioxide 19 23 BUN 35 H 29 H Creatinine 1.29 H 1.10 Glucose 121 H 105 H Calcium 8.2 L 8.2 L Liver Function 02/20/17 Range/Units 05:28 Total Bilirubin 1.0 D (0.2-1.2) mg/dL AST 21 (5-34) Units/L ALT 13 (0-55) Units/L Alkaline Phosphatase 84 (38-126) Units/L Albumin 3.1 L D (3.5-5.0) g/dL - ABG Interpretation ABG results: PT/INR, D-dimer PT 12.4 Seconds (9.4-12.1) H 02/20/17 05:28 - Attending Attestation I saw and examined the patient independently. I have discussed with the resident Dr. Dyer regarding the management plan. Agree with the documentation. Patient was send from snf for nausea vomiting and poor intake for 3 days. She presented dehydration and JAIME in emergency room. Right now her nausea and vomiting has improved, dehydration and JAIME also improved after hydration. CT abdomen unremarkable, nausea vomiting is probably due to viral gastritis. We will continue symptomatic treatment and close monitor renal function and BMP. Patient tolerates diet well now, expected to discharge back to snf soon.
--- NOTE | 2017-02-20 12:22 | Electrocardiograph Report ---
[facility] Date: 2017-02-19 Pat Name: Adriane Zepeda Department: 103 Room: 3A22 Gender: F Community Engagement Coordinator: AM : 1950 Requested By: Hitesh Tompkins Order Number: [id number] Reading MD: Narciso Villatoro MD Measurements Intervals [place] Rate: 71 P: 50 CA: 166 QRS: -47 QRSD: 77 T: 135 QT: 391 QTc: 414 Interpretive Statements SINUS RHYTHM WITH SINUS ARRHYTHMIA POSSIBLE LEFT ATRIAL ENLARGEMENT [-0.1mV P WAVE IN V1/V2] MARKED LEFT AXIS DEVIATION [QRS AXIS < -30] LEFT VENTRICULAR HYPERTROPHY AND ST-T CHANGE [VOLTAGE CRITERIA PLUS ST/T ABNORMALITY] POSSIBLE INFERIOR MYOCARDIAL INFARCTION [30 ms Q WAVE IN II/aVF], OF INDETERMINATE AGE; present 06/2016 Electronically Signed On 02-20-2017 12:20:59 EDT by Narciso Villatoro MD
[2017-02-20 16:53] LABS: Hemoglobin A1C 5.4 %
[2017-02-20] MEDS ORDERED: *HR* Rivaroxaban 15 MG TABLET PO SCH (17:00)
[2017-02-20] MEDS: OLANZapine 10 MG TAB.RAPDIS PO SCH (20:24)
[2017-02-20] MEDS: traZODone 50 MG TABLET PO SCH (20:24)
[2017-02-21 03:54] LABS: Basophils # 0.1 K/mcL (0.0-0.2); Basophils % 0.8 %; Eosinophils # 0.2 K/mcL (0.0-0.6); Eosinophils % 3.5 %; Hemoglobin 11.9 g/dL (11.5-15.4); Immature Granulocytes % 0.3 % (0-4); Lymphocytes # 2.8 K/mcL (0.6-4.6); Lymphocytes % 43.8 %; Mean Corpuscular HGB Conc 33.1 g/dL (31.6-35.5); Mean Corpuscular Hemoglobin 32.1 pg (28.0-33.3); Monocytes # 0.4 K/mcL (0.0-1.3); Monocytes % 6.1 %; Neutrophils # 2.9 K/mcL (1.6-8.9); Platelet Count 187 K/mcL (140-400); Red Blood Count 3.71 M/mcL (3.82-4.97); Red Cell Distribution Width 13.1 % (11.5-14.5); Segmented Neutrophils % 45.5 %
[2017-02-21 04:15] LABS: BUN/Creatinine Ratio 21 (6-26); Blood Urea Nitrogen 21 mg/dL (7-20); Calcium 8.8 mg/dL (8.6-10.8); Carbon Dioxide 19 mEq/L (19-29); Chloride 114 mEq/L (98-109); Glucose 97 mg/dL (70-99); Osmolality,Calculated 297 (280-300); Potassium 3.8 mEq/L (3.5-4.5); Sodium 142 mEq/L (136-145); eGFR For African Americans > 60 (> 60); eGFR For Non-African Americans 56 (> 60)
[2017-02-21] MEDS: Sennosides/Docusate Sodium TABLET PO SCH (08:12)
[2017-02-21] MEDS: Folic Acid 1 MG TABLET PO SCH (08:12)
[2017-02-21] MEDS: Multivit/Ca/Min/Fe/FA 1 TAB TABLET PO SCH (08:12)
[2017-02-21] MEDS: Gabapentin 100 MG CAPSULE PO SCH (08:12)
[2017-02-21] MEDS: Verapamil ER (24 HR) 120 MG TABLET.ER PO SCH (08:13)
[2017-02-21] MEDS: Cholecalciferol (D-3) 1,000 UNIT TABLET PO SCH (08:13)
[2017-02-21] MEDS: Cyanocobalamin (B-12) 1,000 MCG TABLET PO SCH (08:13)
[2017-02-21] MEDS: clonazePAM 0.5 MG TABLET PO SCH (08:14)
--- NOTE | 2017-02-21 08:18 | Discharge Summary ---
<Jeanette Dyer - Last Filed: 02/21/17 11:15> Date of Encounter: 02/21/17 Time of Encounter: 08:16 - Discharge Diagnosis (1) Nausea and vomiting Priority: Primary Status: Acute Qualifiers: Vomiting type: unspecified Vomiting Intractability: unspecified Qualified Code(s): R11.2 - Nausea with vomiting, unspecified (2) Generalized weakness Priority: Secondary Status: Acute (3) Leukocytosis Priority: Secondary Status: Acute Qualifiers: Leukocytosis type: unspecified Qualified Code(s): D72.829 - Elevated white blood cell count, unspecified (4) JAIME (acute kidney injury) Priority: Secondary Status: Acute (5) Anemia Priority: Secondary Status: Acute Qualifiers: Qualified Code(s): D64.9 - Anemia, unspecified (6) Chronic anticoagulation Priority: Secondary Status: Chronic (7) Depression Priority: Secondary Status: Chronic Qualifiers: Depression Type: unspecified Qualified Code(s): F32.9 - Major depressive disorder, single episode, unspecified (8) DVT prophylaxis Priority: Secondary Status: Acute - Discharge Medications Prescriptions: Rivaroxaban [Xarelto] 15 mg PO 1700 #7 tablet Home Medications: Folic Acid 1 mg PO DAILY #0 tablet 01/22/15 [Rx] Isosorbide DInitrate [Isordil] 30 mg PO TID #0 tablet 01/22/15 [Rx] Multivit/Ca/Min/Fe/FA [Thera M Plus] 1 tab PO DAILY #0 tablet 01/22/15 [Rx] Lisinopril [Zestril] 30 mg PO DAILY 02/10/15 [History] Potassium Chloride 20 meq PO TID 02/10/15 [History] Atorvastatin [Lipitor] 40 mg PO HS 03/10/15 [History] Calcium Carbonate/Vitamin D3 [Calcium 600 + D Tablet] 2 tab PO DAILY 03/10/15 [ History] Docusate [Colace] 100 mg PO BID 03/10/15 [History] Pantoprazole Sodium [Protonix] 40 mg PO DAILY 03/10/15 [History] Verapamil ER (24 HR) [Calan SR] 120 mg PO DAILY 03/10/15 [History] Furosemide [Lasix] 20 mg PO DAILY 03/11/15 [History] TraZODone 50 mg PO HS #7 tablet 03/25/15 [Rx] Ergocalciferol (VITAMIN D2) [Vitamin D2] 50,000 unit PO QWEEK 07/09/16 [History] Gabapentin [Neurontin] 100 mg PO TID 07/09/16 [History] Paroxetine [Paxil] 40 mg PO DAILY 07/09/16 [History] clonazePAM [Klonopin] 0.25 mg PO BID 07/09/16 [History] Cyanocobalamin (Vitamin B-12) [Vitamin B-12] 250 mcg PO DAILY 02/19/17 [History] Donepezil [Aricept] 10 mg PO HS 02/19/17 [History] Memantine [Namenda] 5 mg PO BID 02/19/17 [History] OLANZapine [Zyprexa] 10 mg PO HS 02/19/17 [History] Rivaroxaban [Xarelto] 15 mg PO 1700 #7 tablet 02/21/17 [Rx] Allergies/Adverse Reactions: 3 Allergy/AdvReac Type Severity Reaction Status Date / Time aspirin Allergy Anaphylaxis Verified 07/09/16 10:35 Penicillins Allergy Anaphylaxis Verified 07/09/16 10:35 Date of admission: 02/19/17 11:10 Primary care physician: Suzanna Cody, Consults: 02/19/17 11:20 Consult to Occupational Therapy [CONS] Routine Comment: Evaluate, develop and implement POC Reason for Consult: Patient has hx of CVA and TIAs with residual weakness. Please assess for strength, stability, ambulation, and assistive needs for post- discharge planning. 02/19/17 11:21 Consult to Physical Therapy [CONS] Routine Comment: Evaluate, develop and implement POC Reason for Consult: Patient has hx of CVA and TIAs with residual weakness. Please assess for strength, stability, ambulation, and assistive needs for post- discharge planning. Consult to Secretary Office Clerk [CONS] Routine Reason for SW Consult: Patient is a resident of [place]. Please assess for any needs for post-discharge planning. 02/19/17 12:35 Consult to Pastoral Services [CONS] Routine Comment: Discharging clinician: Rajeev Byers - Patient Status Disposition: Transfer SNF Condition: Good Functional capacity at discharge: uses cane/walker Overall status at discharge: patient is back to baseline - Discharge Instructions Follow Up With: Suzanna Cody MD [Primary Care Provider] - Additional Instructions: Follow-up with her PCP in about a week, also have your primary care provider order an ultrasound of your kidneys due to renal cysts found on CT- this is nonemergent return to the hospital should you develop fever, chills, worsening abdominal pain - Diet and Activity Activity: ambulate only with your walker Diet: advance to your usual diet Hospital course: Ms. Zepeda is a 66 year old female with medical history of CVA in 1950, GERD , hyperlipidemia, hypertension, myocardial infarction many years ago with no heart catheterization or stent placement, RA, osteoarthritis, seizures, and TIAs with most recent being last year presents from the ED with chief complaint of nausea and vomiting for the past 3 days. Patient states she is unable to keep anything, including medications, down. States she vomited more than 3 times today. Patient has previous history of CVA and has residual bilateral weakness and speech deficit. Ms. Zepeda states she uses a walker at the SNF she resides at but reports hx of falls. Patient reports weakness, abdominal pain, nausea, vomiting but denies fever, chills, chest pain, palpitations, dyspnea, orthopnea, cough, diarrhea, constipation, unusual bleeding, headache, dizziness, lightheadedness, fatigue, presyncope, or syncope. CT of the abdomen/ pelvis today without contrast shows new moderate L2 vertebral compression fracture when compared to 10/13/14. No retropulsion and spinal canal. This is age indeterminate by imaging. Subcentimeter slightly hyperdense renal lesions on the right are not fully characterized on this noncontrast examination. These are favored represent proteinacious cyst although confirmation with renal ultrasound is recommended non-emergently. Colonic diverticulosis. No CT evidence of acute diverticulitis. Small hiatal hernia with nonspecific thickening of distal esophagus and herniated stomach. Single view CXR today shows basilar atelectasis with no acute cardiopulmonary disease. Upon admission , patient's vital signs include temperature of 90 8.7F heart rate of 60 bpm, respiratory rate of 18, BP of 146/78, and SPO2 of 95% on room air. Abnormal labs include WBC of 13.5, sodium of 153, chloride of 117, BUN of 43, creatinine of 1.84. The patient was admitted and started on IV fluids, NPO, and anti- emetics. Blood cultures are pending. The patient continued to improve and her white blood cell counts was within normal limits. Her JAIME had resolved. IV fluids were stopped and she was encouraged with or hydration. She denied abdominal pain, nausea, vomiting, melena, fever, chills. Due to clinically improving in her symptoms of nausea and vomiting resulting she was deemed ready for discharge. She was to return to the short-term [facility] is [place] from where she came from. She requested a flu shot and pneumonia shot for she was given. She has also informed to follow up with her PCP about the renal cysts with ultrasound, non-emergently. She was informed of the treatment plan and all questions were answered. She was alert and oriented times 3 with full capacity. She is to return to the hospital should she developed fever, chills, worsening abdominal pain. - Time Spent with Patient Total time spent providing and/or coordinating discharge services: - Constitutional Vitals: Temp Pulse Resp BP Pulse Ox 97.5 F L 51 14 175/81 97 02/21/17 06:42 02/21/17 06:42 02/21/17 06:42 02/21/17 06:42 02/21/17 06:42 General appearance: Present: cooperative, A&O X 3, pleasant, no acute distress, answers questions appropriately Exam: Gen.: Vitals noted. No acute distress. AAOx3 HEENT: oropharynx clear, Normocephalic, atraumatic Cardiac: irregular, no murmur, +S1/S2 Pulmonary: CTA bilaterally, no wheezes, rales or rhonchi, equal chest expansion Abdomen: soft, nontender, Bowel sounds noted, no guarding Extremities: + BLE edema, nontender calf, no cyanosis or clubbing Neuro: A&Ox3, moves all extremities Psych: Appropriate mood and behavior <Rajeev Byers - Last Filed: 02/21/17 13:59> Date of Encounter: 02/21/17 Date of admission: 02/19/17 11:10 Primary care physician: Suzanna Cody, Consults: 02/19/17 11:20 Consult to Occupational Therapy [CONS] Routine Comment: Evaluate, develop and implement POC Reason for Consult: Patient has hx of CVA and TIAs with residual weakness. Please assess for strength, stability, ambulation, and assistive needs for post- discharge planning. 02/19/17 11:21 Consult to Physical Therapy [CONS] Routine Comment: Evaluate, develop and implement POC Reason for Consult: Patient has hx of CVA and TIAs with residual weakness. Please assess for strength, stability, ambulation, and assistive needs for post- discharge planning. Consult to Secretary Office Clerk [CONS] Routine Reason for SW Consult: Patient is a resident of [place]. Please assess for any needs for post-discharge planning. 02/19/17 12:35 Consult to Pastoral Services [CONS] Routine Comment: Hospital course: Ms. Zepeda is a 66 year old female - Time Spent with Patient Total time spent providing and/or coordinating discharge services: - Constitutional Vitals: Temp Pulse Resp BP Pulse Ox 97.5 F L 58 14 144/83 99 02/21/17 09:59 02/21/17 09:59 02/21/17 09:59 02/21/17 09:59 02/21/17 09:59 - Attending Attestation I have seen and examined the patient independently. I have discussed with the resident Dr. Dyer regarding discharge planning. Agree with the documentation. Patient was admitted for nausea vomiting and JAIME. She was treated with IV fluid and symptomatic treatment. Her renal function has improved to normal. Patient has no further nausea vomiting, tolerated diet well. Abdominal CT generally unremarkable, reported suspect subcentimeter renal cyst on the right side, patient will further follow-up with PCP and has renal ultrasounds as outpatient.
[2017-02-21] MEDS ORDERED: Pneumococcal 23 Valent Vaccine 25 MCG/0.5 ML VIAL IM ONE (08:25)
[2017-02-21] MEDS ORDERED: FLU VACC QS2017-18(6M-36M)/PF 0.5 ML SYRINGE IM ONE (08:25)
[2017-02-21] MEDS ORDERED: FLUARIX QUAD 2017-18 36MOS UP/PF 0.5 ML SYRINGE IM ONE (08:55)
[2017-02-21 10:02] VITALS: BP 144/83
--- NOTE | 2017-02-21 11:29 | Physician Discharge Referral ---
ExtendedCare Referral Info Transfer To: [facility] Provider in Charge after Transfer: PCP Institutional Level of Care: Skilled - Diagnosis (1) Nausea and vomiting Status: Acute (2) Generalized weakness Status: Acute (3) Leukocytosis Status: Acute (4) JAIME (acute kidney injury) Status: Acute (5) Anemia Status: Acute (6) Chronic anticoagulation Status: Chronic (7) Depression Status: Chronic (8) DVT prophylaxis Status: Acute - Transfer Medications Prescriptions: Rivaroxaban [Xarelto] 15 mg PO 1700 #7 tablet Home Medications: Folic Acid 1 mg PO DAILY #0 tablet 01/22/15 [Rx] Isosorbide DInitrate [Isordil] 30 mg PO TID #0 tablet 01/22/15 [Rx] Multivit/Ca/Min/Fe/FA [Thera M Plus] 1 tab PO DAILY #0 tablet 01/22/15 [Rx] Lisinopril [Zestril] 30 mg PO DAILY 02/10/15 [History] Potassium Chloride 20 meq PO TID 02/10/15 [History] Atorvastatin [Lipitor] 40 mg PO HS 03/10/15 [History] Calcium Carbonate/Vitamin D3 [Calcium 600 + D Tablet] 2 tab PO DAILY 03/10/15 [ History] Docusate [Colace] 100 mg PO BID 03/10/15 [History] Pantoprazole Sodium [Protonix] 40 mg PO DAILY 03/10/15 [History] Verapamil ER (24 HR) [Calan SR] 120 mg PO DAILY 03/10/15 [History] Furosemide [Lasix] 20 mg PO DAILY 03/11/15 [History] TraZODone 50 mg PO HS #7 tablet 03/25/15 [Rx] Ergocalciferol (VITAMIN D2) [Vitamin D2] 50,000 unit PO QWEEK 07/09/16 [History] Gabapentin [Neurontin] 100 mg PO TID 07/09/16 [History] Paroxetine [Paxil] 40 mg PO DAILY 07/09/16 [History] clonazePAM [Klonopin] 0.25 mg PO BID 07/09/16 [History] Cyanocobalamin (Vitamin B-12) [Vitamin B-12] 250 mcg PO DAILY 02/19/17 [History] Donepezil [Aricept] 10 mg PO HS 02/19/17 [History] Memantine [Namenda] 5 mg PO BID 02/19/17 [History] OLANZapine [Zyprexa] 10 mg PO HS 02/19/17 [History] Rivaroxaban [Xarelto] 15 mg PO 1700 #7 tablet 02/21/17 [Rx] Allergies/Adverse Reactions: 3 Allergy/AdvReac Type Severity Reaction Status Date / Time aspirin Allergy Anaphylaxis Verified 07/09/16 10:35 Penicillins Allergy Anaphylaxis Verified 07/09/16 10:35 - Respiratory Orders None Smoking Cessation: Smoking cessation has been advised. For more information, call the [facility] Quit Line at [phone]. - Advance Directives Code Status: DNR-Arrest/Don't Intubate - Mobility Orders Ambulate - Rehabiliation Orders Rehab Potential: Good - Diet Orders Regular CERTIFICATION: I certify that the transfer of the above named patient to an Extended Care Facility is necessary for the continuing treatment of the diagnosis listed. The above information is true and accurate reflection of patient's current condition. Confidential - Redisclosure prohibited without a patient's written consent.
[2017-02-21] MEDS ORDERED: *HR* Rivaroxaban 15 MG TABLET PO SCH (17:00)
== END 2017-02-21 15:02 ==
LOC: 3ANU 07:46 → EMEROO 07:46 → SUATTDRO 11:10 → 3ANU 11:21
PROVIDERS: ADMIT Internal Medicine; ATTEND Internal Medicine

== ENCOUNTER 2017-05-18 17:25 | Observation (INO) ==
[2017-05-18] MEDS ORDERED: 0.9 % Sodium Chloride 1,000 ML IVC ONE (17:28)
[2017-05-18] MEDS ORDERED: Acetaminophen 325 MG TABLET PO ONE (17:35)
--- NOTE | 2017-05-18 17:50 | Emergency Department Note ---
Disposition Clinical Impression: Influenza A, JAIME (acute kidney injury) Syncope Qualifiers: Syncope type: unspecified Qualified Code(s): R55 - Syncope and collapse Disposition: Admitted As Inpatient Condition: Fair Referrals: NONE,PCP [Primary Care Provider] - Forms: ED Satisfaction Letter Time of Disposition: 19:08 Syncope HPI - General Chief Complaint: ED Syncope Stated Complaint: syncope Time Seen by Provider: 05/18/17 17:27 Source: EMS Mode of arrival: EMS Limitations: altered mental status Nursing Notes Reviewed: Yes Vital Signs Reviewed: Yes - History of Present Illness HPI Narrative: 75-year-old female history of CVA, JAIME, GERD, hypertension, failure to thrive, dehydration, presents after multiple syncopal events, she was at [facility], she passed out a few times, other times was while she was at the [employer] eating food her eyes rolled back according to a witness, and she passed out she is not sure if she struck her head or not. She is currently anticoagulated she has a history of A. fib, and DVTs, she is on Xarelto. Pt Subjective Complaint: loss of consciousness, collapsed Onset (ago): [employer] Duration: second(s) Witnessed: yes - by other Context: at rest Current Symptoms: none History: previous syncopal episode Treatments prior to arrival: none - Related Data Home Medications Medication Instructions Recorded Confirmed Lisinopril [Zestril] 30 mg PO DAILY 02/10/15 02/19/17 Potassium Chloride 20 meq PO TID 02/10/15 02/19/17 Atorvastatin [Lipitor] 40 mg PO HS 03/10/15 02/19/17 Calcium Carbonate/Vitamin D3 2 tab PO DAILY 03/10/15 02/19/17 [Calcium 600 + D Tablet] Docusate [Colace] 100 mg PO BID 03/10/15 02/19/17 Pantoprazole Sodium [Protonix] 40 mg PO DAILY 03/10/15 02/19/17 Verapamil ER (24 HR) [Calan SR] 120 mg PO DAILY 03/10/15 02/19/17 Furosemide [Lasix] 20 mg PO DAILY 03/11/15 02/19/17 Ergocalciferol (VITAMIN D2) 50,000 unit PO QWEEK 07/09/16 02/19/17 [Vitamin D2] Gabapentin [Neurontin] 100 mg PO TID 07/09/16 02/19/17 Paroxetine [Paxil] 40 mg PO DAILY 07/09/16 02/19/17 clonazePAM [Klonopin] 0.25 mg PO BID 07/09/16 02/19/17 Cyanocobalamin (Vitamin B-12) 250 mcg PO DAILY 02/19/17 02/19/17 [Vitamin B-12] Donepezil [Aricept] 10 mg PO HS 02/19/17 02/19/17 Memantine [Namenda] 5 mg PO BID 02/19/17 02/19/17 OLANZapine [Zyprexa] 10 mg PO HS 02/19/17 02/19/17 Previous Rx's Medication Instructions Recorded Folic Acid 1 mg PO DAILY #0 tablet 01/22/15 Isosorbide DInitrate [Isordil] 30 mg PO TID #0 tablet 01/22/15 Multivit/Ca/Min/Fe/FA [Thera M 1 tab PO DAILY #0 tablet 01/22/15 Plus] TraZODone 50 mg PO HS #7 tablet 03/25/15 Rivaroxaban [Xarelto] 15 mg PO 1700 #7 tablet 02/21/17 Allergies Allergy/AdvReac Type Severity Reaction Status Date / Time aspirin Allergy Anaphylaxis Verified 07/09/16 10:35 Penicillins Allergy Anaphylaxis Verified 07/09/16 10:35 All systems ED: reviewed and negative except as stated. Review of Systems: As Per HPI Constitutional: Reports: weakness. Denies: fever, chills Eyes: Denies: eye pain ENT ED: Denies: ear pain Cardiovascular: Denies: chest pain, palpitations Respiratory: Denies: cough, dyspnea Gastrointestinal: Reports: nausea Genitourinary: Denies: urgency, dysuria Musculoskeletal: Denies: back pain, neck pain Integumentary: Denies: rash Neurological: Reports: as per HPI, headache, weakness Psychiatric: Denies: anxiety, depression Endocrine: Denies: fatigue Past Medical History - Past Medical History Attestation: Yes The following information was validated with the patient. 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 - Social History Smoking Status: Never smoker Smokeless Tobacco Status: No Alcohol use: Reports: none Drug use: Reports: none Physical Exam Constitutional: Debilitated elderly female, is febrile, vital signs stable Eyes: PERRLA, sclera anicteric ENT & Mouth: MM dry Neck: normal inspection, neck is supple Resp: CTA bilaterally, no resp distress CV: RRR, no m/g/r GI: normal inspection, soft, no guarding or rigidity Neuro: A&O3, CNII-XII grossly intact, RUVALCABA Skin: Poor skin turgor - General Limitations: altered mental status General appearance: alert, in no apparent distress Course Course Narrative: 67-year-old female with fall, cough and congestion lately, she has had several syncopal events today. The patient's appears dehydrated given a liter bolus, flu urinalysis chest x-ray looked for sources of infection, she is on Xarelto she had a also we have a head CT, although she is neurologically nonfocal at this time. - Reevaluation(s) Reevaluation #1: Hospitalist paged. Patient positive for influenza A, will be admitted to the hospital service for syncope influenza Time: 18:43 Vital Signs Temperature 102.8 F H 05/18/17 17:28 Pulse Rate 77 05/18/17 17:28 Respiratory Rate 16 05/18/17 17:28 Blood Pressure 155/72 05/18/17 17:28 O2 Sat by Pulse Oximetry 93 05/18/17 17:28 Temperature 102.8 F H 05/18/17 17:28 Pulse Rate 78 05/18/17 18:30 Respiratory Rate 16 05/18/17 18:30 Blood Pressure 146/74 05/18/17 18:30 O2 Sat by Pulse Oximetry 95 05/18/17 18:30 Oxygen Delivery Oxygen Delivery Room Air Syncope - Medical Records Medical records reviewed: Yes I reviewed the patient's medical records. - Lab Data Lab results reviewed: Yes I reviewed the patient's lab results. Result diagrams: 05/18/17 18:02 05/18/17 18:02 Lab Results 05/18/17 05/18/17 05/18/17 Range/Units 18:02 18:02 18:02 WBC 5.7 (4.3-11.1) K/mcL RBC 4.11 (3.82-4.97) M/mcL Hgb 13.4 (11.5-15.4) g/dL Hct 40.6 (35.3-44.9) % MCV 98.8 (83.0-100.0) fL MCH 32.6 (28.0-33.3) pg MCHC 33.0 (31.6-35.5) g/dL RDW 14.2 (11.5-14.5) % Plt Count 158 (140-400) K/mcL MPV 9.6 (9.4-12.4) fL Immature Gran % 0.2 (0-4) % Seg Neutrophils % 73.2 % Lymphocytes % 13.6 % Monocytes % 12.2 % Eosinophils % 0.5 % Basophils % 0.3 % Neutrophils # 4.2 (1.6-8.9) K/mcL Lymphocytes # 0.8 (0.6-4.6) K/mcL Monocytes # 0.7 (0.0-1.3) K/mcL Eosinophils # 0.0 (0.0-0.6) K/mcL Basophils # 0.0 (0.0-0.2) K/mcL Sodium 139 (136-145) mEq/L Potassium 3.6 (3.5-5.1) mEq/L Chloride 104 (98-107) mEq/L Carbon Dioxide 25 (23-29) mEq/L BUN 14 (8-23) mg/dL Creatinine 1.29 H (0.60-1.20) mg/dL Est GFR ( Amer) 50 L (> 60) Est GFR (Non-Af Amer) 41 L (> 60) BUN/Creatinine Ratio 11 (6-26) Glucose 112 H (70-105) mg/dL Calculated Osmolality 289 (280-300) Lactic Acid 1.3 (0.5-2.2) mmol/L Calcium 9.1 (8.6-10.3) mg/dL Total Bilirubin 0.6 (0.3-1.0) mg/dL AST 24 (13-39) Units/L ALT 15 (7-52) Units/L Alkaline Phosphatase 94 (34-104) Units/L Troponin I (< 0.04) ng/mL Serum Total Protein 7.5 (6.4-8.9) g/dL Albumin 4.1 (3.5-5.7) g/dL Globulin 3.4 (2.4-3.5) g/dL Albumin/Globulin Ratio 1.2 (1.1-2.2) Urine Color (Yellow) Urine Clarity (Clear) Urine pH (5.0-8.0) pH Units Ur Specific [place] (1.010-1.025) Urine Protein (Neg-Trace) mg/dL Urine Glucose (UA) (Normal) mg/dL Urine Ketones (Negative) mg/dL Urine Blood (Negative) Urine Nitrite (Negative) Urine Bilirubin (Negative) Urine Urobilinogen (Normal) mg/dL Ur Leukocyte Esterase (Negative) Urine Microscopic RBC (0-3) per hpf Urine Microscopic WBC (0-3) per hpf Ur Squamous Epith Cells (None-Few) per lpf Hyaline Casts (None-Few) per lpf Ur Culture Indicated? (NO) 05/18/17 05/18/17 Range/Units 18:02 18:10 WBC (4.3-11.1) K/mcL RBC (3.82-4.97) M/mcL Hgb (11.5-15.4) g/dL Hct (35.3-44.9) % MCV (83.0-100.0) fL MCH (28.0-33.3) pg MCHC (31.6-35.5) g/dL RDW (11.5-14.5) % Plt Count (140-400) K/mcL MPV (9.4-12.4) fL Immature Gran % (0-4) % Seg Neutrophils % % Lymphocytes % % Monocytes % % Eosinophils % % Basophils % % Neutrophils # (1.6-8.9) K/mcL Lymphocytes # (0.6-4.6) K/mcL Monocytes # (0.0-1.3) K/mcL Eosinophils # (0.0-0.6) K/mcL Basophils # (0.0-0.2) K/mcL Sodium (136-145) mEq/L Potassium (3.5-5.1) mEq/L Chloride (98-107) mEq/L Carbon Dioxide (23-29) mEq/L BUN (8-23) mg/dL Creatinine (0.60-1.20) mg/dL Est GFR ( Amer) (> 60) Est GFR (Non-Af Amer) (> 60) BUN/Creatinine Ratio (6-26) Glucose (70-105) mg/dL Calculated Osmolality (280-300) Lactic Acid (0.5-2.2) mmol/L Calcium (8.6-10.3) mg/dL Total Bilirubin (0.3-1.0) mg/dL AST (13-39) Units/L ALT (7-52) Units/L Alkaline Phosphatase (34-104) Units/L Troponin I < 0.03 (< 0.04) ng/mL Serum Total Protein (6.4-8.9) g/dL Albumin (3.5-5.7) g/dL Globulin (2.4-3.5) g/dL Albumin/Globulin Ratio (1.1-2.2) Urine Color Yellow (Yellow) Urine Clarity Clear (Clear) Urine pH 6.0 (5.0-8.0) pH Units Ur Specific [place] 1.015 (1.010-1.025) Urine Protein Trace (Neg-Trace) mg/dL Urine Glucose (UA) Normal (Normal) mg/dL Urine Ketones Negative (Negative) mg/dL Urine Blood Negative (Negative) Urine Nitrite Negative (Negative) Urine Bilirubin Negative (Negative) Urine Urobilinogen Normal (Normal) mg/dL Ur Leukocyte Esterase Negative (Negative) Urine Microscopic RBC 0-3 (0-3) per hpf Urine Microscopic WBC 0-3 (0-3) per hpf Ur Squamous Epith Cells Few (None-Few) per lpf Hyaline Casts Few (None-Few) per lpf Ur Culture Indicated? NO (NO) - Radiology Data Radiology results reviewed: Yes I reviewed the patient's radiology results. Chest X-Ray 05/18/17 17:28 IMPRESSION: No evidence of acute disease. D/ / Conor Marie MD / Conor Marie MD Interpreting Provider: Conor Marie MD - EKG Data EKG attestation: Yes I reviewed and interpreted this EKG. EKG shows normal: sinus rhythm Rate: normal (76 bpm MD 179 QRS [address] segment flattening in aVL, no acute ischemic changes.) [place]/QRS: normal - Core Measures AMI Core Measures Followed: No
[2017-05-18 18:10] LABS: Basophils % 0.3 %; Eosinophils % 0.5 %; Hematocrit 40.6 % (35.3-44.9); Hemoglobin 13.4 g/dL (11.5-15.4); Immature Granulocytes % 0.2 % (0-4); Lymphocytes # 0.8 K/mcL (0.6-4.6); Lymphocytes % 13.6 %; Mean Corpuscular Hemoglobin 32.6 pg (28.0-33.3); Mean Corpuscular Volume 98.8 fL (83.0-100.0); Mean Platelet Volume 9.6 fL (9.4-12.4); Monocytes # 0.7 K/mcL (0.0-1.3); Monocytes % 12.2 %; Neutrophils # 4.2 K/mcL (1.6-8.9); Platelet Count 158 K/mcL (140-400); Red Blood Count 4.11 M/mcL (3.82-4.97); Red Cell Distribution Width 14.2 % (11.5-14.5); Segmented Neutrophils % 73.2 %
[2017-05-18 18:19] LABS: Bilirubin,Urine Negative (Negative); Blood,Urine Negative (Negative); Clarity,Urine Clear (Clear); Color,Urine Yellow (Yellow); Glucose,Urine (UA) Normal (Normal); Ketones,Urine Negative (Negative); Leukocyte Esterase,Urine Negative (Negative); Nitrite,Urine Negative (Negative); Protein,Urine Trace mg/dL (Neg-Trace); Specific Gravity,Urine 1.015 (1.010-1.025); Urobilinogen,Urine Normal (Normal)
[2017-05-18 18:26] LABS: Albumin 4.1 g/dL (3.5-5.7); Albumin/Globulin Ratio 1.2 (1.1-2.2); Bilirubin,Total 0.6 mg/dL (0.3-1.0); Calcium 9.1 mg/dL (8.6-10.3); Globulin 3.4 g/dL (2.4-3.5); Potassium 3.6 mEq/L (3.5-5.1); Total Protein 7.5 g/dL (6.4-8.9)
[2017-05-18 18:39] LABS: Hyaline Casts,Urine Few per lpf (None-Few); Squamous Epithelial Cell,Urine Few per lpf (None-Few)
[2017-05-18 18:40] LABS: RBC,Urine 0-3 per hpf (0-3); WBC,Urine 0-3 per hpf (0-3)
--- NOTE | 2017-05-18 18:40 | Emergency Department Note ---
START Narrative - START START: I examined this patient and my medical decision-making was reviewed with the Resident Physician. I agree with the documented findings, disposition and treatment plan as described except to the extent set forth below. 67[place]year-old [place] [facility] [place] [facility] presents for fever and syncope. Patient states she nearly passed out twice today. States she has had flulike symptoms for the past few days. She denies any vomiting or diarrhea. No urinary complaints. She does admit to slight cough. She denies chest pain. No abdominal pain. Plan to check some screening lab work for this near syncope/ syncope. Also workup for infectious standpoint as well.
[2017-05-18] MEDS ORDERED: Naloxone 0.4 MG/ML INJ IVP PRN (20:02)
[2017-05-18] MEDS ORDERED: Acetaminophen 325 MG TABLET PO PRN (20:02)
[2017-05-18] MEDS ORDERED: Albuterol 2.5 MG/3 ML NEBULIZER IH PRN (20:10)
[2017-05-18] MEDS ORDERED: 0.9 % Sodium Chloride 1,000 ML IVC SCH (20:15)
--- NOTE | 2017-05-18 22:16 | Internal Med History&Physical ---
<Juanita Orozco - Last Filed: 05/18/17 22:30> Date of Encounter: 05/18/17 Time of Encounter: 21:00 Assessment and Plan (1) Syncope Current visit: Yes Status: Acute Patient had an episode of syncope with loss of consciousness today.-She has had a cardiac history as well as history of stroke-she was positive for influenza A which I suspect may be contributing to syncope CT was negative for any intracranial bleed. We will place her on fall precautions Obtain cardiac echo Obtain carotid Dopplers Continuous cardiac monitoring IV fluids overnight Obtain orthostatic vital signs Qualifiers: Syncope type: unspecified Qualified Code(s): R55 - Syncope and collapse (2) JAIME (acute kidney injury) Current visit: Yes Status: Acute Patient's creatinine is 1.29 appears her baseline is less than 1 suspect this is prerenal patient has not been eating well. We will continue to monitor creatinine We will give gentle IV fluids overnight Avoid nephrotoxins Renal dose medications Maintain MAP greater than 60 Monitor intake and output daily weights (3) Influenza A Current visit: Yes Status: Acute Patient has been experiencing cold symptoms as well as chills and fevers. Swabbed for influenza which was positive influenza A. We will initiate on Tamiflu we will give 30 mg twice a day due to decreased renal function (4) Chronic anticoagulation Current visit: No Status: Chronic Patient is on Xarelto for history of DVT and atrial fibrillation. We will continue (5) HTN (hypertension) Current visit: No Status: Chronic Patient did have syncope episode and has AK I we will hold hypertensive for now and resume once back to baseline Qualifiers: Hypertension type: essential hypertension Qualified Code(s): I10 - Essential (primary) hypertension (6) DVT prophylaxis Current visit: No Status: Acute Patient is on Xarelto we will place [facility] [place] Internal Medicine - H&P: HPI Chief complaint: syncope Admitted From: Emergency Dept Plans for Post Hospital Care: Home History of present illness: Ms. Zepeda is a 67 year old female S medical history of CVA or HI GERD hypertension atrial fibrillation DVT. Patient resides at a [facility] she states that over the past 2 days she has been experiencing cold symptoms of cough congestion general malaise and chills. She has had poor apeptite and has not been eating or drinking very well. She denies any fever nausea shortness of breath vomiting diarrhea abdominal pain or chest pain. She states that today she has felt lightheaded and while ambulating to the dining [place] she passed out. She is unsure if she struck her head. She is presently anticoagulated for history of A. fib and DVTs. When she arrived to the dining [place]endo[place] she was eating and staffed witnessed her eyes rolling back and losing consciousness. She was unconscious for just a few seconds. She was brought to the ER for evaluation. Patient did have a fever upon presentation 102.8 . Lab work did reveal a KI chest x-ray was clear urinalysis unremarkable CT of head was with no acute intracranial abnormalities. She did swab positive for influenza A. she was initiated on Tamiflu given IV fluids and has been admitted for further workup and evaluation. Presently patient denies any chest pain or shortness of breath she is stable at this time. I did review his case with Dr. Byers who agrees with plan. Past Med Surg Social Fam HX - Past Medical History Medical history: CVA, GERD, hyperlipidemia, hypertension, myocardial infarction , RA, seizures, TIA, other Psychiatric history: depression, other - Past Surgical History Surgical History: cholecystectomy, PAXTON/BSO - Social History Smoking Status: Never smoker Smokeless Tobacco Status: No Alcohol use: none Drug use: none - Family History Brother Family Member Ethnicity: Non- Living Status: Hx Family Cardiac Disorders: Yes (CAD, HI, HTN, HLD) Sister Family Member Ethnicity: Non- Living Status: Still Living Hx Family Cardiac Disorders: Yes (HI, CAD, HTN) Mother Family Member Ethnicity: Non- Living Status: Hx Family Cardiac Disorders: Yes (CAD, HI, HTN, HLD) Father Family Member Ethnicity: Non- Living Status: Hx Family Cancer: Yes (Brain) Internal Medicine - H&P: Meds Folic Acid 1 mg PO DAILY #0 tablet 01/22/15 [Rx] Isosorbide DInitrate [Isordil] 30 mg PO TID #0 tablet 01/22/15 [Rx] Lisinopril [Zestril] 30 mg PO DAILY 02/10/15 [History] Atorvastatin [Lipitor] 40 mg PO HS 03/10/15 [History] Calcium Carbonate/Vitamin D3 [Calcium 600 + D Tablet] 2 tab PO DAILY 03/10/15 [ History] Docusate [Colace] 100 mg PO BID 03/10/15 [History] Pantoprazole Sodium [Protonix] 40 mg PO DAILY 03/10/15 [History] Verapamil ER (24 HR) [Calan SR] 120 mg PO DAILY 03/10/15 [History] Furosemide [Lasix] 20 mg PO DAILY 03/11/15 [History] Ergocalciferol (VITAMIN D2) [Vitamin D2] 50,000 unit PO QWEEK 07/09/16 [History] Gabapentin [Neurontin] 100 mg PO TID 07/09/16 [History] Cyanocobalamin (Vitamin B-12) [Vitamin B-12] 250 mcg PO DAILY 02/19/17 [History] Donepezil [Aricept] 10 mg PO HS 02/19/17 [History] Memantine [Namenda] 5 mg PO BID 02/19/17 [History] OLANZapine [Zyprexa] 10 mg PO HS 02/19/17 [History] Rivaroxaban [Xarelto] 15 mg PO 1700 #7 tablet 02/21/17 [Rx] Acetaminophen [Tylenol] 650 mg PO Q6HR PRN 05/19/17 [History] Multivit,Th Iron,Other Min [Thera-M] 1 each PO DAILY 05/19/17 [History] 3 Allergy/AdvReac Type Severity Reaction Status Date / Time aspirin Allergy Anaphylaxis Verified 07/09/16 10:35 Penicillins Allergy Anaphylaxis Verified 07/09/16 10:35 All Systems PM: A 10-system review of systems was performed and is negative for pertinent findings except as documented above in the HPI. - Constitutional Constitutional: fatigue, malaise, no chills, no fever(s), no night sweats - EENT Eyes: no change in vision, no discharge, no pain, no photophobia Nose, mouth and throat: no dysphagia, no nasal discharge, no neck pain, no sore throat - Cardiovascular Cardiovascular ROS IM: lightheadedness, syncope, no chest pain, no diaphoresis, no dyspnea, no palpitations - Respiratory Respiratory: cough, chest congestion - Gastrointestinal Gastrointestinal: no abdominal pain, no diarrhea, no hematemesis, no hematochezia, no melena, no nausea, no vomiting - Genitourinary Genitourinary: no change in urinary stream, no dysuria, no flank pain, no hematuria - Musculoskeletal Musculoskeletal ROS IM: no numbness, no tingling - Integumentary Integumentary IM: no rash, no unusual bruising - Neurological Neurological ROS: no confusion, no convulsions, no focal weakness, no numbness, no tingling, no tremor(s) - Hematologic/Lymphatic Hematologic/Lymphatic: as per HPI - Constitutional Vitals: Temp Pulse Resp BP Pulse Ox 98.2 F 71 16 124/62 93 05/18/17 20:02 05/18/17 20:02 05/18/17 20:02 05/18/17 20:02 05/18/17 20:02 General appearance: Present: A&O X 3, answers questions appropriately - Head Head exam: Present: atraumatic, normocephalic - Eye Eye exam: Present: PERRL, conjuntiva pink, sclera anicteric Pupils: Present: PERRL - Neck Neck exam general surgery: Present: supple, trachea midline. Absent: lymphadenopathy - Respiratory Respiratory exam: Present: rhonchi. Absent: accessory muscle use, rales, wheezes - Cardiovascular Cardiovascular exam: Present: RRR, +S1, +S2. Absent: diastolic murmur, gallop, rubs, systolic murmur - GI/Abdominal GI/Abdominal exam: Present: normal bowel sounds, soft, no peritoneal signs. Absent: distended, tenderness - Extremities Exam Extremities exam: Present: warm, radial pulses palpable and symmetrical. Absent : calf tenderness, cyanotic, pedal edema - Neurological Exam Neurological exam: Present: CN II-XII intact, oriented X3, no focal deficits. Absent: pronater drift, facial droop, speech deficit - Skin Skin exam: Present: dry, intact Internal Med - H&P Results - Labs CBC & Chem 7: 05/18/17 18:02 05/18/17 18:02 - EKG Data EKG shows normal: sinus rhythm - Diagnostic Studies Other Images Additional comments: Chest X-Ray 05/18/17 17:28 IMPRESSION: No evidence of acute disease. D/ / Conor Marie MD / Conor Marie MD Interpreting Provider: Conor Marie MD Head CT 05/18/17 17:30 IMPRESSION: No acute intracranial abnormality. Bilateral sphenoid sinusitis is likely acute. D/ / Yamil Engle MD / Yamil Engle MD Interpreting Provider: Yamil Engle MD <Rajeev Byers - Last Filed: 05/19/17 05:57> Date of Encounter: 05/19/17 Internal Medicine - H&P: HPI History of present illness: Ms. Zepeda is a 67 year old female All Systems PM: A 10-system review of systems was performed and is negative for pertinent findings except as documented above in the HPI. - Constitutional Vitals: Temp Pulse Resp BP Pulse Ox 99.4 F 64 15 159/75 90 05/19/17 02:59 05/19/17 02:59 05/19/17 02:59 05/19/17 02:59 05/19/17 02:59 Internal Med - H&P Results - Labs CBC & Chem 7: 05/19/17 05:45 05/18/17 18:02 Labs: Short CBC 05/19/17 Range/Units 05:45 WBC 5.0 (4.3-11.1) K/mcL Hgb 12.0 (11.5-15.4) g/dL Hct 36.4 (35.3-44.9) % Plt Count 165 (140-400) K/mcL Neutrophils # 2.7 (1.6-8.9) K/mcL Cardiac Enzymes 05/19/17 Range/Units 00:37 Troponin I < 0.03 (< 0.04) ng/mL - Attending Attestation I have seen and examined pt independently, I have discussed with [employer] Ms Orozco regarding the management plan. Agree with the documentation.
[2017-05-18] MEDS: 0.9 % Sodium Chloride 1,000 ML IVC SCH (23:49)
[2017-05-19 05:52] LABS: Basophils % 0.4 %; Eosinophils % 0.6 %; Hematocrit 36.4 % (35.3-44.9); Immature Granulocytes % 0.2 % (0-4); Lymphocytes # 1.5 K/mcL (0.6-4.6); Lymphocytes % 29.9 %; Mean Corpuscular Hemoglobin 32.3 pg (28.0-33.3); Mean Corpuscular Volume 97.8 fL (83.0-100.0); Mean Platelet Volume 9.3 fL (9.4-12.4); Monocytes # 0.7 K/mcL (0.0-1.3); Monocytes % 14.5 %; Neutrophils # 2.7 K/mcL (1.6-8.9); Platelet Count 165 K/mcL (140-400); Red Blood Count 3.72 M/mcL (3.82-4.97); Red Cell Distribution Width 14.4 % (11.5-14.5); Segmented Neutrophils % 54.4 %
[2017-05-19 06:06] LABS: BUN/Creatinine Ratio 10 (6-26); Blood Urea Nitrogen 10 mg/dL (8-23); Calcium 8.2 mg/dL (8.6-10.3); Carbon Dioxide 23 mEq/L (23-29); Chloride 112 mEq/L (98-107); Chol/HDL Ratio 1.9 (0-4.9); Cholesterol 114 mg/dL (< 200); Glucose 104 mg/dL (70-105); HDL Cholesterol 61 mg/dL (40-59); LDL Cholesterol,Calculated 34 mg/dL (0-99); Magnesium 1.6 mg/dL (1.6-2.6); Osmolality,Calculated 295 (280-300); Potassium 3.4 mEq/L (3.5-5.1); Sodium 143 mEq/L (136-145); Triglycerides 93 mg/dL (< 150); eGFR For African Americans > 60 (> 60); eGFR For Non-African Americans 53 (> 60)
[2017-05-19] MEDS: Gabapentin 100 MG CAPSULE PO SCH ×3 (08:25→21:15)
[2017-05-19] MEDS: Oseltamivir Phosphate 30 MG CAPSULE PO SCH ×2 (08:26→21:14)
[2017-05-19] MEDS: Verapamil ER (24 HR) 120 MG TABLET.ER PO SCH (08:27)
--- NOTE | 2017-05-19 09:44 | Internal Med Progress Note ---
Date of Encounter: 05/19/17 Time of Encounter: 08:45 - Assessment and plan (1) Syncope Current Visit: Yes Status: Acute Assessment and plan: Patient had syncopal episode attending room and ECF. Patient does not cardiac history as well as history of CVA. Flu swab positive for influenza A, possible contributing factor to syncopal episode. CT was negative. Chest x-ray is negative. Echocardiogram and carotid Dopplers are pending. Patient received IV fluids overnight which improved renal function. Patient is close to the nurses station, continue fall precautions and monitor for safety. Qualifiers: Syncope type: unspecified Qualified Code(s): R55 - Syncope and collapse (2) HTN (hypertension) Current Visit: Yes Status: Chronic Assessment and plan: Blood pressures been well controlled in the inpatient setting. Continue to monitor vital signs. Continue home medications. Qualifiers: Hypertension type: essential hypertension Qualified Code(s): I10 - Essential (primary) hypertension (3) HLD (hyperlipidemia) Current Visit: Yes Status: Chronic Assessment and plan: Chronic. Continue home medications. Qualifiers: Hyperlipidemia type: pure hypercholesterolemia Qualified Code(s): E78.00 - Pure hypercholesterolemia, unspecified; E78.0 - Pure hypercholesterolemia (4) GERD (gastroesophageal reflux disease) Current Visit: Yes Status: Chronic Assessment and plan: Chronic. Continue home medications. Qualifiers: Esophagitis presence: esophagitis presence not specified Qualified Code(s) : K21.9 - Gastro-esophageal reflux disease without esophagitis (5) Depression with anxiety Current Visit: Yes Status: Chronic Assessment and plan: Chronic. (6) Influenza A Current Visit: Yes Status: Acute Assessment and plan: Patient reports URI symptoms, subjective fevers and chills. Patient is positive for flu a Tamiflu 30 mg by mouth twice daily for 5 days due to decreased renal function. 1/10 doses given so far. Continue supportive treatment: IV fluid hydration, replace electrolytes, anti- medics, analgesics, Tamiflu, antitussives when necessary (7) DVT prophylaxis Current Visit: Yes Status: Acute Assessment and plan: Pt is on Xarelto and KAIA hose are ordered. (8) Hypokalemia Current Visit: Yes Status: Acute Assessment and plan: Continue to monitor. 3.4 today. KCl 20meq po BID. - Time Spent With Patient less than 15 minutes - Subjective Interval history: Pt was seen and assessed at 0845 am. She is a rather poor historian and is interested in eating her breakfast. She denies chest pain, sob, n/v/d, diaphoresis. She states that she remembers the events of yesterday. All testing explained and pt verbalized understanding. - Constitutional Vitals: Temp Pulse Resp BP Pulse Ox 100.1 F H 70 16 154/64 94 05/19/17 07:12 05/19/17 07:12 05/19/17 07:12 05/19/17 07:12 05/19/17 08:30 General appearance: Present: cooperative, A&O X 2, pleasant, no acute distress, answers questions appropriately - Head Head exam: Present: atraumatic, normal inspection, normocephalic - Eye Eye exam: Present: normal appearance, PERRL, conjuntiva pink, sclera anicteric. Absent: nystagmus - Neck Neck exam general surgery: Present: normal inspection, supple, trachea midline. Absent: lymphadenopathy, tenderness - Respiratory Respiratory exam: Present: decreased breath sounds, CTAB. Absent: accessory muscle use, rales, rhonchi, wheezes - Cardiovascular Cardiovascular exam: Present: RRR, +S1, +S2. Absent: diastolic murmur, gallop, rubs, systolic murmur - GI/Abdominal GI/Abdominal exam: Present: normal bowel sounds, soft. Absent: distended, hepatomegaly, tenderness - Extremities Exam Extremities exam: Present: normal capillary refill, warm, radial pulses palpable and symmetrical. Absent: calf tenderness, cyanotic, pedal edema, tenderness - Neurological Exam Neurological exam: Present: alert, no focal deficits. Absent: facial droop, speech deficit - Skin Skin exam: Present: dry, intact, normal color, warm. Absent: rash Internal Medicine: Result - Labs CBC & Chem 7: 05/19/17 05:45 05/19/17 05:45 Labs: Short CBC 05/19/17 Range/Units 05:45 WBC 5.0 (4.3-11.1) K/mcL Hgb 12.0 (11.5-15.4) g/dL Hct 36.4 (35.3-44.9) % Plt Count 165 (140-400) K/mcL Neutrophils # 2.7 (1.6-8.9) K/mcL BMP 05/19/17 05:45 Sodium 143 Potassium 3.4 L Chloride 112 H Carbon Dioxide 23 BUN 10 Creatinine 1.03 Glucose 104 Calcium 8.2 L Cardiac Enzymes 05/19/17 05/19/17 Range/Units 00:37 05:45 Troponin I < 0.03 < 0.03 (< 0.04) ng/mL Consult Discharge Plan - Plan Referrals: NONE,PCP [Primary Care Provider] -
[2017-05-19] MEDS ORDERED: Verapamil ER (24 HR) 240 MG TABLET.ER PO SCH (10:00)
[2017-05-19] MEDS: 0.9 % Sodium Chloride 1,000 ML IVC SCH ×3 (10:36→21:15)
[2017-05-19] MEDS: *HR* Rivaroxaban 15 MG TABLET PO SCH (16:53)
[2017-05-19] MEDS ORDERED: *HR* Rivaroxaban 15 MG TABLET PO SCH (17:00)
[2017-05-19] MEDS: OLANZapine 10 MG TAB.RAPDIS PO SCH (21:15)
[2017-05-20] MEDS: Furosemide 20 MG TABLET PO SCH (09:40)
[2017-05-20] MEDS: Verapamil ER (24 HR) 120 MG TABLET.ER PO SCH (09:41)
[2017-05-20] MEDS: Oseltamivir Phosphate 30 MG CAPSULE PO SCH ×2 (09:43→19:56)
[2017-05-20] MEDS: Gabapentin 100 MG CAPSULE PO SCH ×3 (09:43→19:55)
[2017-05-20] MEDS: Cyanocobalamin (B-12) 1,000 MCG TABLET PO SCH (09:43)
[2017-05-20] MEDS: VITAMIN D3 PO SCH (09:44)
[2017-05-20] MEDS: Folic Acid 1 MG TABLET PO SCH (09:44)
[2017-05-20] MEDS: Multivit/Ca/Min/Fe/FA 1 TAB TABLET PO SCH (09:44)
[2017-05-20] MEDS: 0.9 % Sodium Chloride 1,000 ML IVC SCH ×2 (09:44→23:08)
[2017-05-20] MEDS: CALCIUM CARBONATE PO SCH (09:44)
--- NOTE | 2017-05-20 10:22 | Electrocardiograph Report ---
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
--- NOTE | 2017-05-20 12:48 | Discharge Summary ---
Date of Encounter: 05/20/17 Time of Encounter: 09:00 - Discharge Diagnosis (1) Syncope Priority: Primary Status: Acute Comments: Patient had syncopal episode in dining room at [facility] in the setting of mild prerenal JAIME, dehydration and influenza. Flu swab positive for influenza A, possible contributing factor to syncopal episode. CT was negative. Chest x-ray is negative. Echocardiogram showed an EF of 60-65% with no significant valvular dysfunction. Carotids showed right ICA with 40-59%, left ICA with nonstenotic plaque. Patient has received IV fluids, which improved renal function and dehydration. We will continue to treat influenza symptoms after discharge at [facility]. Patient reports feeling significantly better today. She is in no distress. Qualifiers: Syncope type: unspecified Qualified Code(s): R55 - Syncope and collapse (2) HTN (hypertension) Priority: Secondary Status: Chronic Comments: Chronic. Continue medications. Qualifiers: Hypertension type: essential hypertension Qualified Code(s): I10 - Essential (primary) hypertension (3) HLD (hyperlipidemia) Priority: Secondary Status: Chronic Comments: Chronic. Continue medications. Qualifiers: Hyperlipidemia type: pure hypercholesterolemia Qualified Code(s): E78.00 - Pure hypercholesterolemia, unspecified; E78.0 - Pure hypercholesterolemia (4) GERD (gastroesophageal reflux disease) Priority: Secondary Status: Chronic Qualifiers: Esophagitis presence: esophagitis presence not specified Qualified Code(s) : K21.9 - Gastro-esophageal reflux disease without esophagitis (5) Depression with anxiety Priority: Secondary Status: Chronic Comments: Chronic. Continue medications. (6) Influenza A Priority: Secondary Status: Acute Comments: Patient with influenza with a positive rapid flu swab. Continue symptomatic treatment with antiemetics, increase fluid intake, analgesics for pain, fever, body aches. The patient has received doses 3/10 of Tamiflu. (7) DVT prophylaxis Priority: Secondary Status: Acute Comments: Pt is on Xarelto. KAIA hose ordered. (8) Hypokalemia Priority: Secondary Status: Acute Comments: Resolved. K+ 3.7 (9) Generalized weakness Priority: Secondary Status: Acute Comments: Patient was generalized weakness, deconditioning. She has difficulty moving herself in the bed without assistance. Hand grasps are weak bilaterally. She required assistance to stand and take 2 steps at bedside this am. Patient would benefit from PT while at [facility]. PT/OT consultations in and pending. (10) CVA (cerebral vascular accident) Priority: Secondary Status: Chronic Comments: Prior history, vision loss deficit. Qualifiers: CVA mechanism: unspecified Qualified Code(s): I63.9 - Cerebral infarction, unspecified - Discharge Medications Prescriptions: Oseltamivir Phosphate [Tamiflu] 30 mg PO BID #7 capsule Home Medications: Folic Acid 1 mg PO DAILY #0 tablet 01/22/15 [Rx] Isosorbide DInitrate [Isordil] 30 mg PO TID #0 tablet 01/22/15 [Rx] Lisinopril [Zestril] 30 mg PO DAILY 02/10/15 [History] Atorvastatin [Lipitor] 40 mg PO HS 03/10/15 [History] Calcium Carbonate/Vitamin D3 [Calcium 600 + D Tablet] 2 tab PO DAILY 03/10/15 [ History] Docusate [Colace] 100 mg PO BID 03/10/15 [History] Pantoprazole Sodium [Protonix] 40 mg PO DAILY 03/10/15 [History] Verapamil ER (24 HR) [Calan SR] 120 mg PO DAILY 03/10/15 [History] Furosemide [Lasix] 20 mg PO DAILY 03/11/15 [History] Ergocalciferol (VITAMIN D2) [Vitamin D2] 50,000 unit PO MO 07/09/16 [History] Gabapentin [Neurontin] 100 mg PO TID 07/09/16 [History] Cyanocobalamin (Vitamin B-12) [Vitamin B-12] 250 mcg PO DAILY 02/19/17 [History] Donepezil [Aricept] 10 mg PO HS 02/19/17 [History] Memantine [Namenda] 5 mg PO BID 02/19/17 [History] OLANZapine [Zyprexa] 10 mg PO HS 02/19/17 [History] Acetaminophen [Tylenol] 650 mg PO Q6HR PRN 05/19/17 [History] Multivit,Th Iron,Other Min [Thera-M] 1 tab PO DAILY 05/19/17 [History] Albuterol Neb [Proventil Neb] 2.5 mg IH Q2H PRN inhsol 05/20/17 [Rx] Oseltamivir Phosphate [Tamiflu] 30 mg PO BID #7 capsule 05/20/17 [Rx] Potassium Chloride [K-Tab ER] 20 meq PO DAILY 05/20/17 [History] Rivaroxaban [Xarelto] 15 mg PO DAILY 05/20/17 [History] Allergies/Adverse Reactions: 3 Allergy/AdvReac Type Severity Reaction Status Date / Time aspirin Allergy Anaphylaxis Verified 07/09/16 10:35 Penicillins Allergy Anaphylaxis Verified 07/09/16 10:35 Procedures/tests Complete & Pending: Procedures Performed prior 72 hours Category Date Time Status EV carotid duplex imaging BI Routine Y 05/19/17 07:00 Completed EV echocardiogram Routine Y 05/19/17 07:00 Completed Date of admission: 05/18/17 19:20 Primary care physician: PCP NONE Consults: 05/20/17 08:58 Consult to Occupational Therapy [CONS] Routine Comment: Evaluate, develop and implement POC Reason for Consult: eval. Pt is resident at [facility]. Consult to Physical Therapy [CONS] Routine Comment: Evaluate, develop and implement POC Reason for Consult: Evaluation. Pt is resident at [facility] Discharging clinician: Malinda Gustafson Anticipated date of discharge: 05/20/17 - Patient Status Disposition: Transfer SNF Functional capacity at discharge: uses cane/walker Overall status at discharge: patient is progressing back to baseline - Discharge Instructions Follow Up With: NONE,PCP [Primary Care Provider] - - Diet and Activity Activity: as per physical therapy Diet: advance to your usual diet Hospital course: Ms. Zepeda is a 67 year old female with pmh of CVA, hypertension, hyperlipidemia, GERD, depression and anxiety. She presented to the emergency room from [facility] after syncopal episode in the dining room. Patient was mildly dehydrated with a KIN positive influenza swab. She reports several-day illness prior to arrival. Syncopal episode most likely due from to dehydration and influenza. She denies any chest pain, shortness of breath, nausea vomiting or diarrhea. She has no abdominal pain. Echocardiogram with preserved ejection fraction ocular dysfunction, carotid showed right ica with 40-59% stenosis, left only with nonstenotic plaque. chest x-ray was negative. patient was also admitted with hypokalemia has resolved with oral supplements. Patient is weak, has difficulty with standing at bedside and with moving herself around in the bed. She could benefit from physical therapy will be ordered for when she returns to the [facility]. Patient is stable and appropriate to return to ECF. - Time Spent with Patient Total time spent providing and/or coordinating discharge services: Less than 30 minutes - Constitutional Vitals: Temp Pulse Resp BP Pulse Ox 98.3 F 66 16 148/69 93 05/20/17 11:20 05/20/17 11:20 05/20/17 11:20 05/20/17 11:20 05/20/17 11:20 General appearance: Present: cooperative, A&O X 2, pleasant, no acute distress, answers questions appropriately - Head Head exam: Present: atraumatic, normocephalic - Eye Eye exam: Present: normal appearance, conjuntiva pink, sclera anicteric - Neck Neck exam general surgery: Present: supple, trachea midline. Absent: lymphadenopathy, tenderness - Respiratory Respiratory exam: Present: CTAB. Absent: accessory muscle use, chest wall tenderness, rales, respiratory distress, rhonchi, wheezes - Cardiovascular Cardiovascular exam: Present: RRR, +S1, +S2. Absent: diastolic murmur, gallop, rubs, systolic murmur - GI/Abdominal GI/Abdominal exam: Present: normal bowel sounds, soft. Absent: distended, hepatomegaly, tenderness - Extremities Exam Extremities exam: Present: normal capillary refill, normal inspection, warm, radial pulses palpable and symmetrical. Absent: calf tenderness, cyanotic, pedal edema - Neurological Exam Neurological exam: Present: alert, oriented X3, no focal deficits. Absent: facial droop, speech deficit - Skin Skin exam: Present: dry, intact, normal color, warm. Absent: rash - VTE Documentation of Mechanical Device: Graduated compression elastic hosiery
--- NOTE | 2017-05-20 13:56 | Physician Discharge Referral ---
ExtendedCare Referral Info Provider in Charge after Transfer: PCP Institutional Level of Care: Skilled - Diagnosis (1) Syncope Priority: Primary Status: Acute (2) HTN (hypertension) Priority: Secondary Status: Chronic (3) HLD (hyperlipidemia) Priority: Secondary Status: Chronic (4) GERD (gastroesophageal reflux disease) Priority: Secondary Status: Chronic (5) Depression with anxiety Priority: Secondary Status: Chronic (6) Influenza A Priority: Secondary Status: Acute (7) DVT prophylaxis Priority: Secondary Status: Acute (8) Hypokalemia Priority: Secondary Status: Acute (9) Generalized weakness Priority: Secondary Status: Acute (10) CVA (cerebral vascular accident) Priority: Secondary Status: Chronic Prognosis: Good - Transfer Medications Prescriptions: Oseltamivir Phosphate [Tamiflu] 30 mg PO BID #7 capsule Home Medications: Folic Acid 1 mg PO DAILY #0 tablet 01/22/15 [Rx] Isosorbide DInitrate [Isordil] 30 mg PO TID #0 tablet 01/22/15 [Rx] Lisinopril [Zestril] 30 mg PO DAILY 02/10/15 [History] Atorvastatin [Lipitor] 40 mg PO HS 03/10/15 [History] Calcium Carbonate/Vitamin D3 [Calcium 600 + D Tablet] 2 tab PO DAILY 03/10/15 [ History] Docusate [Colace] 100 mg PO BID 03/10/15 [History] Pantoprazole Sodium [Protonix] 40 mg PO DAILY 03/10/15 [History] Verapamil ER (24 HR) [Calan SR] 120 mg PO DAILY 03/10/15 [History] Furosemide [Lasix] 20 mg PO DAILY 03/11/15 [History] Ergocalciferol (VITAMIN D2) [Vitamin D2] 50,000 unit PO MO 07/09/16 [History] Gabapentin [Neurontin] 100 mg PO TID 07/09/16 [History] Cyanocobalamin (Vitamin B-12) [Vitamin B-12] 250 mcg PO DAILY 02/19/17 [History] Donepezil [Aricept] 10 mg PO HS 02/19/17 [History] Memantine [Namenda] 5 mg PO BID 02/19/17 [History] OLANZapine [Zyprexa] 10 mg PO HS 02/19/17 [History] Acetaminophen [Tylenol] 650 mg PO Q6HR PRN 05/19/17 [History] Multivit,Th Iron,Other Min [Thera-M] 1 tab PO DAILY 05/19/17 [History] Albuterol Neb [Proventil Neb] 2.5 mg IH Q2H PRN inhsol 05/20/17 [Rx] Oseltamivir Phosphate [Tamiflu] 30 mg PO BID #7 capsule 05/20/17 [Rx] Potassium Chloride [K-Tab ER] 20 meq PO DAILY 05/20/17 [History] Rivaroxaban [Xarelto] 15 mg PO DAILY 05/20/17 [History] Allergies/Adverse Reactions: 3 Allergy/AdvReac Type Severity Reaction Status Date / Time aspirin Allergy Anaphylaxis Verified 07/09/16 10:35 Penicillins Allergy Anaphylaxis Verified 07/09/16 10:35 - Respiratory Orders Smoking Cessation: Smoking cessation has been advised. For more information, call the [employer] Tobacco Quit Line at 3-694-KEVN-NOW. - Lab Orders Lab Orders: CBC, U/A, Emile 17, CXR yearly - Ancillary Orders May use pressure relief devices daily prn, May go on IGNACIA w/family/respon green party w /meds at nurse discretion PRN, May consult with Dentist, Rug Inspector, Equine Dentist PRN - Advance Directives Code Status: DNR-Arrest - Mobility Orders Chair, Ambulate - Rehabiliation Orders Rehab Potential: Fair Rehab Orders: Sternal Precautions, ROM Exercises, Evaluation for Physical Therapy, Evaluation for Occupational Therapy - Treatments Skin tear care topically daily PRN per policy, May check for fecal impaction rectally daily PRN, Fleet enema rectally every other day PRN cleansing purposes - Diet Orders Regular CERTIFICATION: I certify that the transfer of the above named patient to an Extended Care Facility is necessary for the continuing treatment of the diagnosis listed. The above information is true and accurate reflection of patient's current condition. Confidential - Redisclosure prohibited without a patient's written consent.
[2017-05-20] MEDS: *HR* Rivaroxaban 15 MG TABLET PO SCH (18:14)
[2017-05-20] MEDS: OLANZapine 10 MG TAB.RAPDIS PO SCH (19:56)
[2017-05-21 04:48] LABS: Basophils % 0.4 %; Eosinophils # 0.2 K/mcL (0.0-0.6); Eosinophils % 3.4 %; Immature Granulocytes % 0.2 % (0-4); Lymphocytes # 1.9 K/mcL (0.6-4.6); Lymphocytes % 40.7 %; Mean Corpuscular HGB Conc 32.4 g/dL (31.6-35.5); Mean Corpuscular Hemoglobin 31.9 pg (28.0-33.3); Mean Corpuscular Volume 98.6 fL (83.0-100.0); Mean Platelet Volume 10.4 fL (9.4-12.4); Monocytes # 0.4 K/mcL (0.0-1.3); Monocytes % 8.1 %; Neutrophils # 2.2 K/mcL (1.6-8.9); Platelet Count 156 K/mcL (140-400); Red Blood Count 3.45 M/mcL (3.82-4.97); Red Cell Distribution Width 14.2 % (11.5-14.5); Segmented Neutrophils % 47.2 %
[2017-05-21 05:02] LABS: BUN/Creatinine Ratio 11 (6-26); Blood Urea Nitrogen 10 mg/dL (8-23); Carbon Dioxide 20 mEq/L (23-29); Chloride 115 mEq/L (98-107); Glucose 91 mg/dL (70-105); Osmolality,Calculated 291 (280-300); Potassium 3.7 mEq/L (3.5-5.1); Sodium 141 mEq/L (136-145); eGFR For African Americans > 60 (> 60); eGFR For Non-African Americans > 60 (> 60)
[2017-05-21] MEDS: VITAMIN D3 PO SCH (08:49)
[2017-05-21] MEDS: Gabapentin 100 MG CAPSULE PO SCH (08:49)
[2017-05-21] MEDS: Verapamil ER (24 HR) 120 MG TABLET.ER PO SCH (08:49)
[2017-05-21] MEDS: Folic Acid 1 MG TABLET PO SCH (08:49)
[2017-05-21] MEDS: Oseltamivir Phosphate 30 MG CAPSULE PO SCH (08:49)
[2017-05-21] MEDS: Cyanocobalamin (B-12) 1,000 MCG TABLET PO SCH (08:49)
[2017-05-21] MEDS: CALCIUM CARBONATE PO SCH (08:49)
[2017-05-21] MEDS: Multivit/Ca/Min/Fe/FA 1 TAB TABLET PO SCH (08:49)
[2017-05-21] MEDS: 0.9 % Sodium Chloride 1,000 ML IVC SCH (08:50)
[2017-05-21] MEDS: Furosemide 20 MG TABLET PO SCH (08:52)
[2017-05-21 11:02] VITALS: BP 161/83
--- NOTE | 2017-05-21 11:58 | Internal Med Progress Note ---
Date of Encounter: 05/21/17 Time of Encounter: 08:30 - Assessment and plan (1) Syncope Current Visit: Yes Status: Acute Assessment and plan: had syncopal episode in dining room at [facility]. Head CT, CXR negative. TTE with EF of 60-65% with no significant valvular dysfunction. Carotids showed right ICA with 40-59%, left ICA with nonstenotic plaque. Suspect multifactorial with mild prerenal JAIME, dehydration and influenza. Treated with IV fluids, which improved renal function and dehydration. No symptom recurrence while inpatient. Patient back to baseline. Discharged to ECF. Qualifiers: Syncope type: unspecified Qualified Code(s): R55 - Syncope and collapse (2) Influenza A Current Visit: Yes Status: Acute Assessment and plan: with URI symptoms, subjective fevers and chills. Rapid influenza positive for influenza A. Continue Tamiflu to complete 5 day course, renally dosed. (3) Hypertension Current Visit: No Status: Chronic Assessment and plan: per hx. BP variable but acceptable. Continue home BP medication. BP can be monitored at [facility] Qualifiers: Hypertension type: essential hypertension Qualified Code(s): I10 - Essential (primary) hypertension (4) CVA (cerebral vascular accident) Current Visit: No Status: Chronic Assessment and plan: per hx. no residual neurological deficits. Continue home Xarelto, statin. Qualifiers: CVA mechanism: unspecified Qualified Code(s): I63.9 - Cerebral infarction, unspecified - Subjective Interval history: Exam bedside. Patient is new to me, information obtained from chart review patient report. Patient says she feels better like discharged back to [facility] today. No chest pain, shortness of breath or lightheadedness/dizziness. - Constitutional Vitals: Temp Pulse Resp BP Pulse Ox 98.3 F 70 17 161/83 92 05/21/17 11:01 05/21/17 11:01 05/21/17 11:01 05/21/17 11:01 05/21/17 11:01 General appearance: Present: cooperative, A&O X 3, pleasant, no acute distress, answers questions appropriately - Head Head exam: Present: atraumatic, normocephalic - Eye Eye exam: Present: PERRL, conjuntiva pink, sclera anicteric Pupils: Present: PERRL - Neck Neck exam general surgery: Present: supple, trachea midline. Absent: lymphadenopathy - Respiratory Respiratory exam: Present: CTAB. Absent: accessory muscle use, rales, rhonchi, wheezes - Cardiovascular Cardiovascular exam: Present: RRR, +S1, +S2. Absent: diastolic murmur, gallop, rubs, systolic murmur - GI/Abdominal GI/Abdominal exam: Present: normal bowel sounds, soft, no peritoneal signs. Absent: distended, tenderness - Extremities Exam Extremities exam: Present: warm, radial pulses palpable and symmetrical. Absent : calf tenderness, cyanotic, pedal edema - Neurological Exam Neurological exam: Present: CN II-XII intact, oriented X3, no focal deficits. Absent: pronater drift, facial droop, speech deficit - Skin Skin exam: Present: dry, intact Internal Medicine: Result - Labs CBC & Chem 7: 05/21/17 03:49 05/21/17 03:49 Labs: Short CBC 05/21/17 Range/Units 03:49 WBC 4.7 (4.3-11.1) K/mcL Hgb 11.0 L (11.5-15.4) g/dL Hct 34.0 L (35.3-44.9) % Plt Count 156 (140-400) K/mcL Neutrophils # 2.2 (1.6-8.9) K/mcL BMP 05/21/17 03:49 Sodium 141 Potassium 3.7 Chloride 115 H Carbon Dioxide 20 L BUN 10 Creatinine 0.90 Glucose 91 Calcium 8.0 L - VTE Documentation of Mechanical Device: Graduated compression elastic hosiery Consult Discharge Plan - Plan Referrals: NONE,PCP [Primary Care Provider] - Prescriptions: Oseltamivir Phosphate [Tamiflu] 30 mg PO BID #7 capsule
== END 2017-05-21 14:34 ==
LOC: 3BNU 17:25 → EMEROO 17:25 → 3BNU 20:10
PROVIDERS: ADMIT Internal Medicine; ATTEND Registered Nurse

== ENCOUNTER 2020-01-13 13:12 | Inpatient (IN) ==
[2020-01-13] MEDS ORDERED: 0.9 % Sodium Chloride 1,000 ML IVC ONE (13:27)
[2020-01-13 13:52] LABS: Hematocrit 43.1 % (35.3-44.9); Hemoglobin 14.4 g/dL (11.5-15.4); Immature Granulocytes % 0.4 % (0-4); Lymphocytes # 0.7 K/mcL (0.6-4.6); Lymphocytes % 6.2 %; Mean Corpuscular HGB Conc 33.4 g/dL (31.6-35.5); Mean Corpuscular Hemoglobin 32.7 pg (28.0-33.3); Mean Platelet Volume 10.3 fL (9.4-12.4); Monocytes # 0.4 K/mcL (0.0-1.3); Monocytes % 3.7 %; Neutrophils # 10.6 K/mcL (1.6-8.9); Platelet Count 215 K/mcL (140-400); Red Cell Distribution Width 13.4 % (11.5-14.5); Segmented Neutrophils % 89.7 %; White Blood Count 11.9 K/mcL (4.3-11.1)
[2020-01-13 14:08] LABS: BUN/Creatinine Ratio 32 (6-26); Blood Urea Nitrogen 42 mg/dL (8-23); Calcium 9.2 mg/dL (8.6-10.3); Carbon Dioxide 28 mEq/L (23-29); Chloride 103 mEq/L (98-107); Glucose 161 mg/dL (70-105); Osmolality,Calculated 306 (280-300); Potassium 3.9 mEq/L (3.5-5.1); Sodium 141 mEq/L (136-145); Troponin I < 0.03 ng/mL (< 0.04); eGFR For African Americans 49 (> 60); eGFR For Non-African Americans 40 (> 60)
[2020-01-13 14:42] LABS: Adenovirus Not Detected (Not Detect); Bordetella Pertussis Not Detected (Not Detect); Chlamydophila pneumoniae Not Detected (Not Detect); Coronavirus 229E Not Detected (Not Detect); Coronavirus HKU1 Not Detected (Not Detect); Coronavirus NL63 Not Detected (Not Detect); Coronavirus OC43 Not Detected (Not Detect); Human Metapneumovirus Not Detected (Not Detect); Human Rhinovirus/Enterovirus Not Detected (Not Detect); Influenza A Subtype 2009 H1 Not Detected (Not Detect); Influenza B Not Detected (Not Detect); Mycoplasma pneumoniae Not Detected (Not Detect); Parainfluenza Virus 1 Not Detected (Not Detect); Parainfluenza Virus 2 Not Detected (Not Detect); Parainfluenza Virus 3 Not Detected (Not Detect); Parainfluenza Virus 4 Not Detected (Not Detect); Respiratory Syncytial Virus Not Detected (Not Detect)
[2020-01-13 14:44] LABS: SARS-CoV-2 DETECTED (Not Detect)
[2020-01-13 15:10] LABS: Bilirubin,Urine Negative (Negative); Blood,Urine Negative (Negative); Clarity,Urine Clear (Clear); Color,Urine Colorless (Yellow); Glucose,Urine (UA) Normal (Normal); Ketones,Urine Negative (Negative); Leukocyte Esterase,Urine Negative (Negative); Nitrite,Urine Negative (Negative); PH,Urine 6.5 pH Units (5.0-8.0); Protein,Urine Negative (Neg-Trace); Specific Gravity,Urine 1.009 (1.010-1.025); Urobilinogen,Urine Normal (Normal)
[2020-01-13] MEDS ORDERED: Naloxone 0.4 MG/ML INJ IVP PRN (16:14)
[2020-01-13] MEDS ORDERED: *HR* HYDROcodone/Acet 5/325 mg TABLET PO PRN (16:14)
[2020-01-13] MEDS ORDERED: Albuterol 2.5 MG/3 ML NEBULIZER IH PRN (16:55)
[2020-01-13] MEDS: *HR* Rivaroxaban 15 MG TABLET PO SCH (19:46)
[2020-01-13] MEDS: OLANZapine 5 MG TAB.RAPDIS PO SCH (19:46)
[2020-01-13] MEDS: Gabapentin 100 MG CAPSULE PO SCH (19:46)
[2020-01-14 03:39] LABS: Basophils % 0.1 %; Hematocrit 38.3 % (35.3-44.9); Immature Granulocytes % 0.5 % (0-4); Lymphocytes # 1.2 K/mcL (0.6-4.6); Lymphocytes % 14.3 %; Mean Corpuscular HGB Conc 32.6 g/dL (31.6-35.5); Mean Platelet Volume 10.4 fL (9.4-12.4); Monocytes # 0.3 K/mcL (0.0-1.3); Platelet Count 184 K/mcL (140-400); Red Blood Count 3.91 M/mcL (3.82-4.97); Red Cell Distribution Width 13.6 % (11.5-14.5); Segmented Neutrophils % 81.1 %; White Blood Count 8.6 K/mcL (4.3-11.1)
[2020-01-14 03:40] LABS: Hemoglobin 12.5 g/dL (11.5-15.4)
[2020-01-14 03:41] LABS: Fibrinogen 348 mg/dL (169-393)
[2020-01-14 03:42] LABS: INR 1.7; Prothrombin Time 18.9 Seconds (9.4-12.1)
[2020-01-14 03:43] LABS: Activated Partial Thrombo Time 33.8 Seconds (26.0-36.0)
[2020-01-14 03:48] LABS: D-Dimer < 215 ng/mLFEU (0-500)
[2020-01-14 03:57] LABS: Albumin/Globulin Ratio 1.2 (1.1-2.2); Bilirubin,Total 0.5 mg/dL (0.3-1.0); Calcium 8.2 mg/dL (8.6-10.3); Globulin 2.6 g/dL (2.4-3.5); Magnesium 2.4 mg/dL (1.6-2.6); Phosphorous 2.9 mg/dL (2.7-4.5); Potassium 3.8 mEq/L (3.5-5.1); Total Protein 5.6 g/dL (6.4-8.9)
[2020-01-14 04:04] LABS: Lactate Dehydrogenase 167 Units/L (140-271)
[2020-01-14 04:17] LABS: Ferritin 82 ng/mL (10-120)
[2020-01-14] MEDS: Verapamil ER (24 HR) 180 MG TABLET.ER PO SCH (08:07)
[2020-01-14] MEDS: Gabapentin 100 MG CAPSULE PO SCH ×3 (08:08→20:54)
[2020-01-14] MEDS: lisinopriL 20 MG TABLET PO SCH (08:08)
[2020-01-14] MEDS: Cyanocobalamin (B-12) 1,000 MCG TABLET PO SCH (08:08)
[2020-01-14] MEDS: Ondansetron ODT 4 MG TAB.RAPDIS SL PRN (08:24)
[2020-01-14] MEDS ORDERED: Promethazine 12.5 MG in 0.9 % Sodium Chloride 50 ML IVPB PRN (11:28)
[2020-01-14] MEDS ORDERED: *HR* Promethazine 25 MG/ML VIAL IVP PRN (11:31)
[2020-01-14 13:56] LABS: Basophils % 0.2 %; Eosinophils % 0.1 %; Hematocrit 46.6 % (35.3-44.9); Immature Granulocytes % 0.7 % (0-4); Lymphocytes # 0.9 K/mcL (0.6-4.6); Lymphocytes % 9.6 %; Mean Corpuscular Hemoglobin 33.1 pg (28.0-33.3); Mean Corpuscular Volume 103.6 fL (83.0-100.0); Mean Platelet Volume 11.2 fL (9.4-12.4); Monocytes # 0.3 K/mcL (0.0-1.3); Monocytes % 2.9 %; Neutrophils # 8.3 K/mcL (1.6-8.9); Nucleated Red Blood Cells 0.3 /100 WBC (0); Platelet Count 127 K/mcL (140-400); Red Cell Distribution Width 13.8 % (11.5-14.5); Segmented Neutrophils % 86.5 %; White Blood Count 9.6 K/mcL (4.3-11.1)
[2020-01-14 13:57] LABS: Hemoglobin 14.9 g/dL (11.5-15.4)
[2020-01-14] MEDS ORDERED: Acetaminophen 325 MG TABLET PO PRN (14:46)
[2020-01-14] MEDS: *HR* Promethazine 25 MG/ML VIAL IVP SCH (16:31)
[2020-01-14] MEDS: OLANZapine 5 MG TAB.RAPDIS PO SCH (20:54)
[2020-01-14] MEDS: *HR* Rivaroxaban 15 MG TABLET PO SCH (20:54)
[2020-01-15] MEDS: *HR* Promethazine 25 MG/ML VIAL IVP SCH ×5 (00:09→20:56)
[2020-01-15 01:22] LABS: Basophils % 0.1 %; Hematocrit 36.1 % (35.3-44.9); Immature Granulocytes % 0.9 % (0-4); Lymphocytes # 1.1 K/mcL (0.6-4.6); Lymphocytes % 16.1 %; Mean Corpuscular HGB Conc 32.4 g/dL (31.6-35.5); Mean Corpuscular Hemoglobin 32.1 pg (28.0-33.3); Mean Corpuscular Volume 98.9 fL (83.0-100.0); Mean Platelet Volume 10.2 fL (9.4-12.4); Monocytes # 0.2 K/mcL (0.0-1.3); Monocytes % 2.9 %; Neutrophils # 5.5 K/mcL (1.6-8.9); Platelet Count 147 K/mcL (140-400); Red Blood Count 3.65 M/mcL (3.82-4.97); Red Cell Distribution Width 13.6 % (11.5-14.5); White Blood Count 6.9 K/mcL (4.3-11.1)
[2020-01-15 01:25] LABS: Hemoglobin 11.7 g/dL (11.5-15.4)
[2020-01-15 01:40] LABS: Calcium 7.8 mg/dL (8.6-10.3); Phosphorous 2.7 mg/dL (2.7-4.5); Potassium 3.5 mEq/L (3.5-5.1)
[2020-01-15] MEDS: Verapamil ER (24 HR) 180 MG TABLET.ER PO SCH (08:01)
[2020-01-15] MEDS: Multivit/Ca/Min/Fe/FA 1 TAB TABLET PO SCH (08:01)
[2020-01-15] MEDS: Folic Acid 1 MG TABLET PO SCH (08:02)
[2020-01-15] MEDS: Cyanocobalamin (B-12) 1,000 MCG TABLET PO SCH (08:02)
[2020-01-15] MEDS: lisinopriL 20 MG TABLET PO SCH (08:02)
[2020-01-15] MEDS: Gabapentin 100 MG CAPSULE PO SCH ×3 (08:02→19:41)
[2020-01-15] MEDS: Ondansetron ODT 4 MG TAB.RAPDIS SL PRN (08:32)
[2020-01-15] MEDS ORDERED: Furosemide 20 MG TABLET PO SCH (09:00)
[2020-01-15] MEDS: Dexamethasone 4 MG/ML VIAL IVP SCH (10:11)
[2020-01-15] MEDS: Furosemide 20 MG/2 ML VIAL IVP SCH ×2 (10:12→19:41)
[2020-01-15 11:14] LABS: ABG Base Excess 7 mEq/L (-2 to 3); ABG HCO3 31 mEq/L (21-27); ABG Oxygen Saturation 90 % (95-98); ABG PCO2 40 mmHg (35-45); ABG PH 7.49 pH Units (7.32-7.45); ABG PO2 54 mmHg (85-104); ABG TCO2 32 mEq/L (20-26)
[2020-01-15] MEDS ORDERED: 0.9 % Sodium Chloride 250 ML IV ONE (19:47)
[2020-01-15] MEDS ORDERED: 0.9 % Sodium Chloride 250 ML ONE (19:56)
[2020-01-15] MEDS ORDERED: levoFLOXacin 750 MG/150 ML 750 MG/150 ML BAG IVPB SCH (20:00)
[2020-01-15] MEDS: 0.9 % Sodium Chloride 1,000 ML IVC SCH (20:25)
[2020-01-15] MEDS: *HR* Rivaroxaban 15 MG TABLET PO SCH (20:30)
[2020-01-15] MEDS: OLANZapine 5 MG TAB.RAPDIS PO SCH (20:31)
[2020-01-15 20:48] LABS: Hematocrit 35.3 % (35.3-44.9); Hemoglobin 11.7 g/dL (11.5-15.4); Mean Corpuscular HGB Conc 33.1 g/dL (31.6-35.5); Mean Corpuscular Volume 99.4 fL (83.0-100.0); Mean Platelet Volume 10.5 fL (9.4-12.4); Platelet Count 150 K/mcL (140-400); Red Blood Count 3.55 M/mcL (3.82-4.97); Red Cell Distribution Width 13.5 % (11.5-14.5); White Blood Count 5.7 K/mcL (4.3-11.1)
[2020-01-15 21:00] LABS: Calcium 7.8 mg/dL (8.6-10.3); Potassium 3.8 mEq/L (3.5-5.1)
[2020-01-15] MEDS ORDERED: 0.9 % Sodium Chloride 250 ML IVC ONE (21:37)
[2020-01-16 00:52] LABS: Bilirubin,Urine Negative (Negative); Blood,Urine Moderate (Negative); Clarity,Urine Clear (Clear); Color,Urine Light-Yellow (Yellow); Glucose,Urine (UA) Normal (Normal); Hyaline Casts,Urine Few per lpf (None Seen); Ketones,Urine Negative (Negative); Leukocyte Esterase,Urine Small (Negative); Mucus,Urine Few per lpf (None-Few); Nitrite,Urine Negative (Negative); Protein,Urine Negative (Neg-Trace); Squamous Epithelial Cell,Urine Few per hpf (None-Few); Urobilinogen,Urine Normal (Normal); WBC,Urine 0-3 per hpf (0-3)
[2020-01-16 05:49] LABS: Basophils % 0.2 %; Hematocrit 36.7 % (35.3-44.9); Hemoglobin 12.1 g/dL (11.5-15.4); Immature Granulocytes % 0.6 % (0-4); Lymphocytes # 0.8 K/mcL (0.6-4.6); Lymphocytes % 17.2 %; Mean Platelet Volume 10.2 fL (9.4-12.4); Monocytes # 0.3 K/mcL (0.0-1.3); Monocytes % 5.6 %; Neutrophils # 3.6 K/mcL (1.6-8.9); Platelet Count 146 K/mcL (140-400); Red Blood Count 3.67 M/mcL (3.82-4.97); Red Cell Distribution Width 13.5 % (11.5-14.5); Segmented Neutrophils % 76.4 %; White Blood Count 4.7 K/mcL (4.3-11.1)
[2020-01-16 05:58] LABS: Fibrinogen 494 mg/dL (169-393)
[2020-01-16 06:01] LABS: D-Dimer 393 ng/mLFEU (0-500)
[2020-01-16] MEDS: *HR* Promethazine 25 MG/ML VIAL IVP SCH ×2 (06:12→11:33)
[2020-01-16 06:13] LABS: Magnesium 2.1 mg/dL (1.6-2.6); Phosphorous 3.2 mg/dL (2.7-4.5)
[2020-01-16] MEDS: Dexamethasone 4 MG/ML VIAL IVP SCH (08:43)
[2020-01-16] MEDS: Multivit/Ca/Min/Fe/FA 1 TAB TABLET PO SCH (08:44)
[2020-01-16] MEDS: Folic Acid 1 MG TABLET PO SCH (08:44)
[2020-01-16] MEDS: Gabapentin 100 MG CAPSULE PO SCH ×3 (08:45→21:10)
[2020-01-16] MEDS: lisinopriL 20 MG TABLET PO SCH (08:45)
[2020-01-16] MEDS: Cyanocobalamin (B-12) 1,000 MCG TABLET PO SCH (08:45)
[2020-01-16] MEDS: 0.9 % Sodium Chloride 1,000 ML IVC SCH (09:28)
[2020-01-16] MEDS ORDERED: *HR* Promethazine 25 MG/ML VIAL IVP PRN (16:18)
[2020-01-16] MEDS: *HR* Rivaroxaban 15 MG TABLET PO SCH (21:11)
[2020-01-16] MEDS: OLANZapine 5 MG TAB.RAPDIS PO SCH (21:11)
[2020-01-17 07:43] LABS: BUN/Creatinine Ratio 26 (6-26); Blood Urea Nitrogen 25 mg/dL (8-23); Calcium 8.4 mg/dL (8.6-10.3); Carbon Dioxide 24 mEq/L (23-29); Chloride 110 mEq/L (98-107); Glucose 105 mg/dL (70-105); Magnesium 2.1 mg/dL (1.6-2.6); Osmolality,Calculated 299 (280-300); Phosphorous 2.1 mg/dL (2.7-4.5); Sodium 142 mEq/L (136-145); eGFR For African Americans > 60 (> 60); eGFR For Non-African Americans 57 (> 60)
[2020-01-17] MEDS: Dexamethasone 4 MG/ML VIAL IVP SCH (07:56)
[2020-01-17] MEDS: Gabapentin 100 MG CAPSULE PO SCH (07:57)
[2020-01-17] MEDS: Multivit/Ca/Min/Fe/FA 1 TAB TABLET PO SCH (07:57)
[2020-01-17] MEDS: lisinopriL 20 MG TABLET PO SCH (07:57)
[2020-01-17] MEDS: Folic Acid 1 MG TABLET PO SCH (07:57)
[2020-01-17] MEDS: Cyanocobalamin (B-12) 1,000 MCG TABLET PO SCH (07:58)
[2020-01-17] MEDS: Furosemide 20 MG/2 ML VIAL IVP SCH (07:59)
[2020-01-17 11:44] VITALS: BP 145/85
[2020-01-18] MEDS ORDERED: levoFLOXacin 750 MG/150 ML 750 MG/150 ML BAG IVPB SCH (06:00)
== END 2020-01-17 14:42 | DRG 177 ==
LOC: 2NENU 13:12 → EMEROOARM 13:12 → SUATTDRO 16:12 → 2NENU 17:16
PROVIDERS: ADMIT Internal Medicine; ATTEND Internal Medicine